=== PATIENT | female | born 1955 | race Caucasian/White ===

== ENCOUNTER 2017-07-09 08:29 | Inpatient (IN) ==
[2017-07-09] MEDS ORDERED: METOPROLOL TARTRATE 5 MG/5 ML VIAL IV STA (09:02)
[2017-07-09] MEDS ORDERED: METOCLOPRAMIDE 10 MG/2 ML VIAL IV STA (09:02)
[2017-07-09] MEDS ORDERED: ONDANSETRON 4 MG/2 ML VIAL IV STA (09:02)
[2017-07-09] MEDS ORDERED: ASPIRIN 325 MG TABLET PO STA (09:02)
[2017-07-09] MEDS ORDERED: NITROGLYCERIN 2% OINT 1 INCH/GM PACK TOP STA (09:02)
[2017-07-09] MEDS ORDERED: METOCLOPRAMIDE 10 MG/2 ML VIAL ONE (09:20)
[2017-07-09] MEDS ORDERED: METOPROLOL TARTRATE 5 MG/5 ML VIAL IV ONE (09:20)
[2017-07-09] MEDS ORDERED: ONDANSETRON 4 MG/2 ML VIAL ONE (09:20)
[2017-07-09] MEDS ORDERED: NITROGLYCERIN 2% OINT 1 INCH/GM PACK TOP ONE (09:20)
[2017-07-09 09:34] LABS: Basophils % 0.4 % (0.0-0.8); Eosinophils # 0.1 10*3/uL (0.0-0.87); Eosinophils % 1.7 % (0.00-10.9); Hematocrit 35.9 VOL% (35.7-47.0); Hemoglobin 11.3 GM/DL (12.0-16.0); Immature Granulocytes % 0.5 %; Immature Granulocytes Absolute 0.04 #; Lymphocytes # 1.3 10*3/uL (1.4-4.0); Mean Corpuscular HGB Conc 31.5 GM/DL (32-36); Mean Corpuscular Hemoglobin 29 PG (27-34); Mean Corpuscular Volume 91.6 FL (87-102); Mean Platelet Volume 11.6 FL (9.6-12.0); Monocytes # 0.8 10*3/uL (0.11-0.8); Monocytes % 8.9 % (1.7-12.7); Neutrophils # 6.2 10*3/uL (1.4-7.4); Neutrophils % 73.5 % (38.7-73.9); Platelet Count 128 T/CUMM (130-400); Red Blood Count 3.92 MC/CUMM (3.8-5.5); Red Cell Distribution Width 13.4 % (9.3-17.3); White Blood Count 8.4 T/CUMM (4-12)
[2017-07-09] MEDS ORDERED: FUROSEMIDE 40 MG/4 ML VIAL IV STA (09:37)
[2017-07-09] MEDS ORDERED: FUROSEMIDE 40 MG/4 ML VIAL ONE (09:41)
[2017-07-09 09:46] LABS: INR 0.9; Partial Thromboplastin Time 25.6 SECS (0-40)
[2017-07-09] MEDS ORDERED: MORPHINE 10 MG/1 ML VIAL ONE (09:47)
[2017-07-09] MEDS ORDERED: MORPHINE 2 MG/1 ML SYRINGE IV STA (09:50)
[2017-07-09] MEDS ORDERED: ENOXAPARIN 100 MG/ML SYRINGE SUBCUT STA (10:12)
[2017-07-09 10:14] LABS: Apearance,Urine CLEAR (Clear); Bacteria,Urine Occasional /HPF (Few); Bilirubin,Urine Negative (Negative); Blood, Urine Negative (Negative); Glucose,Urine (UA) Negative (Negative); Ketones,Urine Negative (Negative); Mucus,Urine Occasional /LPF (Occasional); Nitrite,Urine Negative (Negative); Protein,Urine 100 MG/DL; RBC,Urine <1 /HPF (0-4); Squamous Epithelial Cell,Urine Occasional /HPF (0-10); Urine Color Straw (Yellow); Urine Specific Gravity 1.008 (1.001-1.035); Urine Urobilinogen < 2.0 EU/DL (0.2-1.0); WBC,Urine <1 /HPF (0-6)
[2017-07-09 10:15] LABS: Alanine Aminotransferase 53 U/L (13-56); Albumin 3.2 G/DL (3.4-5.0); Alkaline Phosphatase 173 U/L (45-117); Aspartate Amino Transferase 31 U/L (0-37); Bilirubin,Total < 0.39 MG/DL (0.2-1.0); Blood Urea Nitrogen 60 MG/DL (7-18); Calcium 8.6 MG/DL (8.5-10.1); Glucose 229 MG/DL (74-106); Osmolality,Calculated 296.8 MOS/KG (273-304); Potassium 5.1 MMOL/L (3.5-5.1); Sodium 137 MMOL/L (136-145); Total Protein 6.4 G/DL (6.4-8.3)
[2017-07-09 10:30] LABS: Barbiturates Screen,Urine Negative (Negative); Benzodiazepines Screen,Urine Negative (Negative); Cannabinoid Screen,Urine Negative (Negative); Opiate Screen,Urine Negative (Negative); Phencyclidine Screen,Urine Negative (Negative)
[2017-07-09] MEDS ORDERED: ENOXAPARIN 120 MG/0.8 ML SYRINGE SUBCUT ONE (10:42)
[2017-07-09] MEDS ORDERED: DEXTROSE 50% 25 GM/50 ML VIAL IV PRN (11:39)
[2017-07-09] MEDS ORDERED: GLUCAGON 1 MG VIAL IM PRN (11:39)
[2017-07-09] MEDS: NITROGLYCERIN 2% OINT 1 INCH/GM PACK TOP SCH ×2 (12:10→17:38)
[2017-07-09] MEDS: INSULIN REGULAR 100 UNIT/ML SUBCUT SCH ×3 (12:24→21:35)
[2017-07-09] MEDS ORDERED: POTASSIUM CHLORIDE RIDER 10 MEQ in PREMIX 1 EACH IV PRN (12:56)
[2017-07-09] MEDS ORDERED: MAGNESIUM SULF RIDER 2 GM in PREMIX 1 EACH IV PRN (12:56)
[2017-07-09] MEDS: HYDROmorphone 2 MG/1 ML VIAL IV PRN ×2 (15:01→21:27)
[2017-07-09] MEDS: SODIUM CHLORIDE 0.9% 1,000 ML IV SCH (15:02)
[2017-07-09] MEDS: FUROSEMIDE 40 MG/4 ML VIAL IV SCH (15:05)
[2017-07-09] MEDS: ONDANSETRON 4 MG/2 ML VIAL IV PRN ×2 (15:42→21:32)
[2017-07-09 16:23] LABS: CKMB % 3.2 %
[2017-07-09 16:25] LABS: Troponin I Only 1.33 NG/ML (0.00-0.045)
[2017-07-09] MEDS: INSULIN GLARGINE 100 UNIT/ML SUBCUT SCH (21:35)
[2017-07-09] MEDS ORDERED: NITROGLYCERIN SL 0.4 MG TABLET SL ONE (21:41)
[2017-07-09] MEDS: NITROGLYCERIN SL 0.4 MG TABLET SL PRN ×3 (21:43→21:53)
[2017-07-09] MEDS ORDERED: ENOXAPARIN 150 MG/ML SYRINGE SUBCUT SCH (22:00)
[2017-07-09] MEDS ORDERED: NITROGLYCERIN DRIP 50 MG/250 ML BOTTLE IV ONE (22:05)
[2017-07-09] MEDS: NITROGLYCERIN DRIP 50 MG/250 ML BOTTLE IV SCH (22:34)
[2017-07-10] MEDS: NITROGLYCERIN 2% OINT 1 INCH/GM PACK TOP SCH ×4 (00:34→18:10)
[2017-07-10] MEDS: SODIUM CHLORIDE 0.9% 1,000 ML IV SCH ×3 (01:42→21:13)
[2017-07-10] MEDS: ONDANSETRON 4 MG/2 ML VIAL IV PRN (06:03)
[2017-07-10 06:06] LABS: Basophils % 0.3 % (0.0-0.8); Eosinophils # 0.2 10*3/uL (0.0-0.87); Eosinophils % 2.3 % (0.00-10.9); Hemoglobin 10.6 GM/DL (12.0-16.0); Immature Granulocytes % 0.5 %; Immature Granulocytes Absolute 0.05 #; Lymphocytes # 1.5 10*3/uL (1.4-4.0); Lymphocytes % 16.3 % (21.3-54.2); Mean Corpuscular HGB Conc 31.2 GM/DL (32-36); Mean Corpuscular Hemoglobin 29 PG (27-34); Mean Corpuscular Volume 93.7 FL (87-102); Mean Platelet Volume 11.9 FL (9.6-12.0); Monocytes # 0.7 10*3/uL (0.11-0.8); Monocytes % 7.9 % (1.7-12.7); Neutrophils # 6.8 10*3/uL (1.4-7.4); Neutrophils % 72.7 % (38.7-73.9); Platelet Count 126 T/CUMM (130-400); Red Blood Count 3.63 MC/CUMM (3.8-5.5); Red Cell Distribution Width 13.4 % (9.3-17.3); White Blood Count 9.3 T/CUMM (4-12)
[2017-07-10 06:24] LABS: Osmolality,Calculated 308.5 MOS/KG (273-304)
[2017-07-10 06:29] LABS: CKMB % 3.7 %
[2017-07-10 06:30] LABS: Troponin I Only 1.17 NG/ML (0.00-0.045)
[2017-07-10] MEDS ORDERED: diphenhydrAMINE CAP 25 MG CAPSULE PO ONE (06:30)
[2017-07-10] MEDS ORDERED: DIAZEPAM 5 MG TABLET PO ONE (06:30)
[2017-07-10] MEDS: NITROGLYCERIN DRIP 50 MG/250 ML BOTTLE IV SCH ×3 (06:39→22:20)
[2017-07-10] MEDS: FUROSEMIDE 40 MG/4 ML VIAL IV SCH ×3 (07:30→21:15)
[2017-07-10] MEDS: INSULIN REGULAR 100 UNIT/ML SUBCUT SCH ×4 (07:57→21:14)
[2017-07-10] MEDS ORDERED: LIDOCAINE 2%/EPI 20 ML VIAL ONE (08:10)
[2017-07-10] MEDS ORDERED: HEPARIN/NACL 0.9% 2 UNITS/ML 2,000 ML IV ONE (08:10)
[2017-07-10] MEDS ORDERED: MIDAZOLAM 2 MG/2 ML VIAL ONE (08:39)
[2017-07-10] MEDS ORDERED: fentaNYL 100 MCG/2 ML VIAL ONE (08:39)
[2017-07-10] MEDS ORDERED: MORPHINE 10 MG/1 ML VIAL ONE (08:43)
[2017-07-10] MEDS ORDERED: ENOXAPARIN 60 MG/0.6 ML SYRINGE ONE (08:56)
[2017-07-10] MEDS ORDERED: ASPIRIN 325 MG TABLET PO SCH (09:00)
[2017-07-10] MEDS ORDERED: SIMVASTATIN 40 MG TABLET PO SCH (09:00)
[2017-07-10] MEDS ORDERED: TIROFIBAN 5,000 MCG/100 ML PREMIX IV ONE (09:04)
[2017-07-10] MEDS ORDERED: TIROFIBAN 5,000 MCG/100 ML PREMIX IV SCH (09:13)
[2017-07-10] MEDS ORDERED: METOPROLOL TARTRATE 5 MG/5 ML VIAL IV ONE (09:24)
[2017-07-10] MEDS ORDERED: CLOPIDOGREL 300 MG TABLET ONE (09:42)
[2017-07-10] MEDS ORDERED: ENOXAPARIN 150 MG/ML SYRINGE SUBCUT SCH (10:00)
[2017-07-10 10:14] LABS: Apearance,Urine Slightly Hazy (Clear); Bacteria,Urine Occasional /HPF (Few); Bilirubin,Urine Negative (Negative); Blood, Urine Small mg/dL (Negative); Glucose,Urine (UA) Negative (Negative); Ketones,Urine Negative (Negative); Mucus,Urine Occasional /LPF (Occasional); Nitrite,Urine Negative (Negative); Protein,Urine Negative; RBC,Urine 3 /HPF (0-4); Urine Color Yellow (Yellow); Urine Specific Gravity 1.018 (1.001-1.035); Urine Urobilinogen < 2.0 EU/DL (0.2-1.0); WBC,Urine <1 /HPF (0-6)
[2017-07-10] MEDS ORDERED: cloNIDine 0.1 MG TABLET PO PRN (10:29)
[2017-07-10] MEDS: HYDROmorphone 2 MG/1 ML VIAL IV PRN (10:40)
[2017-07-10] MEDS ORDERED: INSULIN LISPRO 100 UNIT/ML SUBCUT PRN (11:17)
[2017-07-10] MEDS ORDERED: FLUTICASONE 50 MCG NASAL SPRAY 16 GM BOTTLE BOTH NARES PRN (11:17)
[2017-07-10] MEDS ORDERED: FUROSEMIDE 40 MG TABLET PO SCH (11:30)
[2017-07-10] MEDS ORDERED: ALUM/MAG/SIMETH/LIDO VISC 1:1 30 ML BOTTLE PO ONE (11:37)
[2017-07-10] MEDS ORDERED: MORPHINE 10 MG/1 ML VIAL IV ONE (11:37)
[2017-07-10 11:57] LABS: Troponin I Only 0.717 NG/ML (0.00-0.045)
[2017-07-10] MEDS: PANTOPRAZOLE 40 MG TABLET PO SCH (12:10)
[2017-07-10] MEDS: ESCITALOPRAM 10 MG TABLET PO SCH ×2 (12:11→12:12)
[2017-07-10] MEDS: FERROUS SULFATE 325 MG TABLET PO SCH ×2 (12:11→21:13)
[2017-07-10] MEDS: CARVEDILOL 6.25 MG TABLET PO SCH ×2 (12:11→21:14)
[2017-07-10] MEDS: ISOSORBIDE MONONITRATE 60 MG TABLET PO SCH (12:11)
[2017-07-10] MEDS: CLOPIDOGREL 75 MG TABLET PO SCH (12:23)
[2017-07-10] MEDS ORDERED: ALUM/MAG/SIMETH/LIDO VISC 1:1 30 ML BOTTLE PO PRN (15:00)
[2017-07-10] MEDS: MAGNESIUM CHLORIDE 64 MG TABLET PO SCH ×2 (15:35→21:13)
[2017-07-10] MEDS: amLODIPine 5 MG TABLET PO SCH (15:35)
[2017-07-10 19:57] LABS: CKMB % 6.2 %
[2017-07-10 20:03] LABS: Troponin I Only 3.93 NG/ML (0.00-0.045)
[2017-07-10] MEDS: ATORVASTATIN 40 MG TABLET PO SCH (21:14)
[2017-07-10] MEDS: INSULIN GLARGINE 100 UNIT/ML SUBCUT SCH (21:14)
[2017-07-11] MEDS: NITROGLYCERIN 2% OINT 1 INCH/GM PACK TOP SCH ×3 (00:50→15:13)
[2017-07-11 02:58] LABS: Basophils % 0.1 % (0.0-0.8); Eosinophils # 0.1 10*3/uL (0.0-0.87); Eosinophils % 1.7 % (0.00-10.9); Hemoglobin 9.7 GM/DL (12.0-16.0); Immature Granulocytes % 0.7 %; Immature Granulocytes Absolute 0.05 #; Lymphocytes % 13.4 % (21.3-54.2); Mean Corpuscular HGB Conc 32.3 GM/DL (32-36); Mean Corpuscular Hemoglobin 30 PG (27-34); Mean Corpuscular Volume 91.2 FL (87-102); Mean Platelet Volume 11.2 FL (9.6-12.0); Monocytes # 0.7 10*3/uL (0.11-0.8); Monocytes % 9.2 % (1.7-12.7); Neutrophils # 5.7 10*3/uL (1.4-7.4); Neutrophils % 74.9 % (38.7-73.9); Platelet Count 100 T/CUMM (130-400); Red Blood Count 3.29 MC/CUMM (3.8-5.5); Red Cell Distribution Width 13.6 % (9.3-17.3); White Blood Count 7.6 T/CUMM (4-12)
[2017-07-11 03:45] LABS: Calcium 8.1 MG/DL (8.5-10.1); Osmolality,Calculated 302.4 MOS/KG (273-304); Potassium 4.5 MMOL/L (3.5-5.1)
[2017-07-11 03:47] LABS: Calcium 7.9 MG/DL (8.5-10.1); Potassium 4.5 MMOL/L (3.5-5.1)
[2017-07-11 03:52] LABS: CKMB % 8.6 %
[2017-07-11 04:01] LABS: Troponin I Only 9.79 NG/ML (0.00-0.045)
[2017-07-11] MEDS: ONDANSETRON 4 MG/2 ML VIAL IV PRN ×2 (06:07→13:07)
[2017-07-11] MEDS ORDERED: CARVEDILOL 12.5 MG TABLET PO SCH (08:09)
[2017-07-11] MEDS: FUROSEMIDE 40 MG/4 ML VIAL IV SCH ×3 (09:09→20:21)
[2017-07-11] MEDS: INSULIN REGULAR 100 UNIT/ML SUBCUT SCH ×4 (09:09→20:21)
[2017-07-11] MEDS: ISOSORBIDE MONONITRATE 60 MG TABLET PO SCH (09:10)
[2017-07-11] MEDS: amLODIPine 5 MG TABLET PO SCH (09:10)
[2017-07-11] MEDS: ASPIRIN EC 81 MG TABLET PO SCH (09:10)
[2017-07-11] MEDS: MAGNESIUM CHLORIDE 64 MG TABLET PO SCH ×3 (09:10→20:16)
[2017-07-11] MEDS: CLOPIDOGREL 75 MG TABLET PO SCH (09:10)
[2017-07-11] MEDS: FERROUS SULFATE 325 MG TABLET PO SCH ×2 (09:10→20:16)
[2017-07-11] MEDS: PANTOPRAZOLE 40 MG TABLET PO SCH (09:11)
[2017-07-11] MEDS: ESCITALOPRAM 10 MG TABLET PO SCH ×2 (09:11)
[2017-07-11] MEDS: CHOLECALCIFEROL 5,000 UNIT TABLET PO SCH (09:18)
[2017-07-11] MEDS: ENOXAPARIN 30 MG/0.3 ML SYRINGE SUBCUT SCH (09:18)
[2017-07-11] MEDS ORDERED: HYDROmorphone 2 MG/1 ML VIAL IV ONE (15:15)
[2017-07-11] MEDS: RANOLAZINE 500 MG TABLET PO SCH (20:16)
[2017-07-11] MEDS: DILTIAZEM CD 120 MG CAPSULE PO SCH (20:16)
[2017-07-11] MEDS: ATORVASTATIN 40 MG TABLET PO SCH (20:16)
[2017-07-11] MEDS: CARVEDILOL 25 MG TABLET PO SCH (20:17)
[2017-07-11] MEDS: INSULIN GLARGINE 100 UNIT/ML SUBCUT SCH (20:21)
[2017-07-12] MEDS: ONDANSETRON 4 MG/2 ML VIAL IV PRN ×3 (00:22→13:05)
[2017-07-12 07:08] LABS: Calcium 8.3 MG/DL (8.5-10.1); Osmolality,Calculated 306.7 MOS/KG (273-304); Potassium 5.7 MMOL/L (3.5-5.1)
[2017-07-12] MEDS: INSULIN REGULAR 100 UNIT/ML SUBCUT SCH ×4 (08:46→22:40)
[2017-07-12] MEDS: MAGNESIUM CHLORIDE 64 MG TABLET PO SCH ×3 (09:48→22:40)
[2017-07-12] MEDS: PANTOPRAZOLE 40 MG TABLET PO SCH (09:48)
[2017-07-12] MEDS: RANOLAZINE 500 MG TABLET PO SCH ×2 (09:49→22:40)
[2017-07-12] MEDS: ASPIRIN EC 81 MG TABLET PO SCH (09:49)
[2017-07-12] MEDS: FERROUS SULFATE 325 MG TABLET PO SCH ×2 (09:49→22:40)
[2017-07-12] MEDS: CARVEDILOL 25 MG TABLET PO SCH (09:49)
[2017-07-12] MEDS: ESCITALOPRAM 10 MG TABLET PO SCH (09:49)
[2017-07-12] MEDS: CLOPIDOGREL 75 MG TABLET PO SCH (09:49)
[2017-07-12] MEDS: CHOLECALCIFEROL 5,000 UNIT TABLET PO SCH (09:49)
[2017-07-12] MEDS: ISOSORBIDE MONONITRATE 60 MG TABLET PO SCH (09:49)
[2017-07-12] MEDS: ENOXAPARIN 30 MG/0.3 ML SYRINGE SUBCUT SCH (09:50)
[2017-07-12] MEDS: FUROSEMIDE 40 MG/4 ML VIAL IV SCH (09:50)
[2017-07-12] MEDS ORDERED: SODIUM POLYSTYRENE SULFATE 15 GM/60 ML BOTTLE PO ONE (13:40)
[2017-07-12 14:10] LABS: Basophils % 0.1 % (0.0-0.8); Eosinophils % 0.3 % (0.00-10.9); Hematocrit 28.1 VOL% (35.7-47.0); Hemoglobin 8.8 GM/DL (12.0-16.0); Immature Granulocytes % 0.4 %; Immature Granulocytes Absolute 0.03 #; Lymphocytes # 1.3 10*3/uL (1.4-4.0); Lymphocytes % 17.6 % (21.3-54.2); Mean Corpuscular HGB Conc 31.3 GM/DL (32-36); Mean Corpuscular Hemoglobin 29 PG (27-34); Mean Corpuscular Volume 93.4 FL (87-102); Mean Platelet Volume 11.1 FL (9.6-12.0); Monocytes # 0.7 10*3/uL (0.11-0.8); Monocytes % 9.4 % (1.7-12.7); NRBC # 0.02 10*3/uL; Neutrophils # 5.2 10*3/uL (1.4-7.4); Neutrophils % 72.2 % (38.7-73.9); Red Blood Count 3.01 MC/CUMM (3.8-5.5); Red Cell Distribution Width 13.6 % (9.3-17.3); White Blood Count 7.2 T/CUMM (4-12)
[2017-07-12 14:13] LABS: Platelet Count 84 T/CUMM (130-400)
[2017-07-12] MEDS: SODIUM CHLORIDE 0.45% 1,000 ML IV SCH (14:20)
[2017-07-12 20:46] LABS: Platelet Estimate Decreased
[2017-07-12] MEDS: INSULIN GLARGINE 100 UNIT/ML SUBCUT SCH (22:40)
[2017-07-12] MEDS: ATORVASTATIN 40 MG TABLET PO SCH (22:40)
[2017-07-12] MEDS: DILTIAZEM CD 120 MG CAPSULE PO SCH (22:41)
[2017-07-13] MEDS: SODIUM CHLORIDE 0.45% 1,000 ML IV SCH (03:17)
[2017-07-13 06:20] LABS: Basophils % 0.3 % (0.0-0.8); Eosinophils # 0.1 10*3/uL (0.0-0.87); Eosinophils % 0.8 % (0.00-10.9); Hematocrit 29.2 VOL% (35.7-47.0); Immature Granulocytes % 0.8 %; Immature Granulocytes Absolute 0.06 #; Lymphocytes # 1.2 10*3/uL (1.4-4.0); Lymphocytes % 15.7 % (21.3-54.2); Mean Corpuscular HGB Conc 30.8 GM/DL (32-36); Mean Corpuscular Hemoglobin 29 PG (27-34); Mean Corpuscular Volume 93.9 FL (87-102); Mean Platelet Volume 12.6 FL (9.6-12.0); Monocytes # 0.8 10*3/uL (0.11-0.8); NRBC # 0.03 10*3/uL; Neutrophils # 5.4 10*3/uL (1.4-7.4); Neutrophils % 71.4 % (38.7-73.9); Platelet Count 101 T/CUMM (130-400); Red Blood Count 3.11 MC/CUMM (3.8-5.5); Red Cell Distribution Width 13.9 % (9.3-17.3); White Blood Count 7.5 T/CUMM (4-12)
[2017-07-13 06:48] LABS: Calcium 8.2 MG/DL (8.5-10.1); Osmolality,Calculated 307.5 MOS/KG (273-304); Potassium 4.5 MMOL/L (3.5-5.1)
[2017-07-13] MEDS: FERROUS SULFATE 325 MG TABLET PO SCH ×2 (08:43→20:59)
[2017-07-13] MEDS: MAGNESIUM CHLORIDE 64 MG TABLET PO SCH ×3 (08:43→20:59)
[2017-07-13] MEDS: ASPIRIN EC 81 MG TABLET PO SCH (08:43)
[2017-07-13] MEDS: CLOPIDOGREL 75 MG TABLET PO SCH (08:43)
[2017-07-13] MEDS: ENOXAPARIN 30 MG/0.3 ML SYRINGE SUBCUT SCH (08:43)
[2017-07-13] MEDS: ISOSORBIDE MONONITRATE 60 MG TABLET PO SCH (08:43)
[2017-07-13] MEDS: CHOLECALCIFEROL 5,000 UNIT TABLET PO SCH (08:43)
[2017-07-13] MEDS: ESCITALOPRAM 10 MG TABLET PO SCH (08:43)
[2017-07-13] MEDS: PANTOPRAZOLE 40 MG TABLET PO SCH (08:43)
[2017-07-13] MEDS: RANOLAZINE 500 MG TABLET PO SCH ×2 (08:43→21:00)
[2017-07-13] MEDS: INSULIN REGULAR 100 UNIT/ML SUBCUT SCH ×4 (08:54→21:00)
[2017-07-13] MEDS: SODIUM BICARB INJ 100 MEQ in DEXTROSE 5% 1,000 ML IV SCH (17:14)
[2017-07-13] MEDS: ATORVASTATIN 40 MG TABLET PO SCH (20:59)
[2017-07-13] MEDS: INSULIN GLARGINE 100 UNIT/ML SUBCUT SCH (21:00)
[2017-07-13] MEDS: DILTIAZEM CD 120 MG CAPSULE PO SCH (21:56)
[2017-07-14] MEDS: ONDANSETRON 4 MG/2 ML VIAL IV PRN (00:31)
[2017-07-14] MEDS: SODIUM BICARB INJ 100 MEQ in DEXTROSE 5% 1,000 ML IV SCH ×2 (06:01→10:05)
[2017-07-14 06:18] LABS: Calcium 8.1 MG/DL (8.5-10.1); Osmolality,Calculated 317.7 MOS/KG (273-304); Potassium 4.6 MMOL/L (3.5-5.1)
[2017-07-14] MEDS: INSULIN REGULAR 100 UNIT/ML SUBCUT SCH ×4 (10:02→21:51)
[2017-07-14] MEDS: ENOXAPARIN 30 MG/0.3 ML SYRINGE SUBCUT SCH (10:03)
[2017-07-14] MEDS: FERROUS SULFATE 325 MG TABLET PO SCH ×2 (10:03→21:51)
[2017-07-14] MEDS: CLOPIDOGREL 75 MG TABLET PO SCH (10:04)
[2017-07-14] MEDS: RANOLAZINE 500 MG TABLET PO SCH ×2 (10:04→21:52)
[2017-07-14] MEDS: ESCITALOPRAM 10 MG TABLET PO SCH (10:04)
[2017-07-14] MEDS: CHOLECALCIFEROL 5,000 UNIT TABLET PO SCH (10:04)
[2017-07-14] MEDS: ISOSORBIDE MONONITRATE 60 MG TABLET PO SCH (10:04)
[2017-07-14] MEDS: PANTOPRAZOLE 40 MG TABLET PO SCH (10:04)
[2017-07-14] MEDS: ASPIRIN EC 81 MG TABLET PO SCH (10:04)
[2017-07-14] MEDS: MAGNESIUM CHLORIDE 64 MG TABLET PO SCH ×3 (10:05→23:02)
[2017-07-14] MEDS: PREGABALIN 25 MG CAPSULE PO SCH ×2 (11:32→21:51)
[2017-07-14] MEDS: INSULIN GLARGINE 100 UNIT/ML SUBCUT SCH (21:51)
[2017-07-14] MEDS: ATORVASTATIN 40 MG TABLET PO SCH (21:52)
[2017-07-14] MEDS: DILTIAZEM CD 120 MG CAPSULE PO SCH (21:52)
[2017-07-15] MEDS: SODIUM BICARB INJ 100 MEQ in DEXTROSE 5% 1,000 ML IV SCH (04:20)
[2017-07-15 04:43] LABS: Basophils % 0.3 % (0.0-0.8); Eosinophils # 0.2 10*3/uL (0.0-0.87); Eosinophils % 2.8 % (0.00-10.9); Hematocrit 27.6 VOL% (35.7-47.0); Hemoglobin 8.6 GM/DL (12.0-16.0); Immature Granulocytes % 0.6 %; Immature Granulocytes Absolute 0.04 #; Lymphocytes % 13.9 % (21.3-54.2); Mean Corpuscular HGB Conc 31.2 GM/DL (32-36); Mean Corpuscular Hemoglobin 29 PG (27-34); Mean Corpuscular Volume 93.9 FL (87-102); Mean Platelet Volume 11.8 FL (9.6-12.0); Monocytes # 0.8 10*3/uL (0.11-0.8); Monocytes % 11.1 % (1.7-12.7); NRBC # 0.02 10*3/uL; Neutrophils # 5.1 10*3/uL (1.4-7.4); Neutrophils % 71.3 % (38.7-73.9); Platelet Count 111 T/CUMM (130-400); Red Blood Count 2.94 MC/CUMM (3.8-5.5); White Blood Count 7.2 T/CUMM (4-12)
[2017-07-15 05:14] LABS: Calcium 8.4 MG/DL (8.5-10.1); Osmolality,Calculated 311.5 MOS/KG (273-304); Potassium 4.4 MMOL/L (3.5-5.1)
[2017-07-15] MEDS: INSULIN REGULAR 100 UNIT/ML SUBCUT SCH ×4 (08:42→21:19)
[2017-07-15] MEDS: MAGNESIUM CHLORIDE 64 MG TABLET PO SCH ×3 (09:39→22:52)
[2017-07-15] MEDS: PREGABALIN 25 MG CAPSULE PO SCH ×2 (09:39→21:19)
[2017-07-15] MEDS: FERROUS SULFATE 325 MG TABLET PO SCH ×2 (09:39→21:20)
[2017-07-15] MEDS: CHOLECALCIFEROL 5,000 UNIT TABLET PO SCH (09:39)
[2017-07-15] MEDS: ESCITALOPRAM 10 MG TABLET PO SCH (09:39)
[2017-07-15] MEDS: ISOSORBIDE MONONITRATE 60 MG TABLET PO SCH (09:39)
[2017-07-15] MEDS: ASPIRIN EC 81 MG TABLET PO SCH (09:39)
[2017-07-15] MEDS: RANOLAZINE 500 MG TABLET PO SCH ×2 (09:39→21:20)
[2017-07-15] MEDS: PANTOPRAZOLE 40 MG TABLET PO SCH (09:40)
[2017-07-15] MEDS: CLOPIDOGREL 75 MG TABLET PO SCH (09:40)
[2017-07-15] MEDS: ENOXAPARIN 30 MG/0.3 ML SYRINGE SUBCUT SCH (09:41)
[2017-07-15] MEDS: INSULIN GLARGINE 100 UNIT/ML SUBCUT SCH (21:19)
[2017-07-15] MEDS: DILTIAZEM CD 120 MG CAPSULE PO SCH (21:20)
[2017-07-15] MEDS: ATORVASTATIN 40 MG TABLET PO SCH (21:20)
[2017-07-16] MEDS: SODIUM BICARB INJ 100 MEQ in DEXTROSE 5% 1,000 ML IV SCH ×3 (00:38→21:24)
[2017-07-16 03:20] LABS: Basophils % 0.3 % (0.0-0.8); Eosinophils # 0.2 10*3/uL (0.0-0.87); Eosinophils % 2.5 % (0.00-10.9); Hematocrit 27.2 VOL% (35.7-47.0); Immature Granulocytes % 0.9 %; Immature Granulocytes Absolute 0.07 #; Lymphocytes % 12.6 % (21.3-54.2); Mean Corpuscular HGB Conc 33.1 GM/DL (32-36); Mean Corpuscular Hemoglobin 30 PG (27-34); Mean Corpuscular Volume 89.8 FL (87-102); Mean Platelet Volume 11.8 FL (9.6-12.0); Monocytes # 0.8 10*3/uL (0.11-0.8); Monocytes % 9.6 % (1.7-12.7); Neutrophils # 5.9 10*3/uL (1.4-7.4); Neutrophils % 74.1 % (38.7-73.9); Platelet Count 128 T/CUMM (130-400); Red Blood Count 3.03 MC/CUMM (3.8-5.5); Red Cell Distribution Width 14.1 % (9.3-17.3)
[2017-07-16 03:31] LABS: Calcium 8.2 MG/DL (8.5-10.1); Osmolality,Calculated 313.7 MOS/KG (273-304); Potassium 4.3 MMOL/L (3.5-5.1)
[2017-07-16] MEDS: INSULIN REGULAR 100 UNIT/ML SUBCUT SCH ×4 (09:30→20:38)
[2017-07-16] MEDS: RANOLAZINE 500 MG TABLET PO SCH ×2 (09:31→20:38)
[2017-07-16] MEDS: ISOSORBIDE MONONITRATE 60 MG TABLET PO SCH (09:31)
[2017-07-16] MEDS: CHOLECALCIFEROL 5,000 UNIT TABLET PO SCH (09:31)
[2017-07-16] MEDS: PANTOPRAZOLE 40 MG TABLET PO SCH (09:31)
[2017-07-16] MEDS: FERROUS SULFATE 325 MG TABLET PO SCH ×2 (09:31→20:38)
[2017-07-16] MEDS: PREGABALIN 25 MG CAPSULE PO SCH ×2 (09:31→20:38)
[2017-07-16] MEDS: ESCITALOPRAM 10 MG TABLET PO SCH (09:31)
[2017-07-16] MEDS: CLOPIDOGREL 75 MG TABLET PO SCH (09:32)
[2017-07-16] MEDS: ASPIRIN EC 81 MG TABLET PO SCH (09:32)
[2017-07-16] MEDS: MAGNESIUM CHLORIDE 64 MG TABLET PO SCH ×3 (09:32→21:43)
[2017-07-16] MEDS: ENOXAPARIN 30 MG/0.3 ML SYRINGE SUBCUT SCH (09:32)
[2017-07-16] MEDS ORDERED: CARVEDILOL 3.125 MG TABLET PO SCH (12:00)
[2017-07-16] MEDS: CARVEDILOL 6.25 MG TABLET PO SCH ×2 (13:02→20:38)
[2017-07-16] MEDS: INSULIN GLARGINE 100 UNIT/ML SUBCUT SCH (20:38)
[2017-07-16] MEDS: ATORVASTATIN 40 MG TABLET PO SCH (20:38)
[2017-07-16] MEDS: DILTIAZEM CD 120 MG CAPSULE PO SCH (21:43)
[2017-07-17 04:48] LABS: Basophils % 0.2 % (0.0-0.8); Eosinophils # 0.2 10*3/uL (0.0-0.87); Eosinophils % 2.3 % (0.00-10.9); Hematocrit 28.8 VOL% (35.7-47.0); Hemoglobin 9.1 GM/DL (12.0-16.0); Immature Granulocytes % 0.7 %; Immature Granulocytes Absolute 0.06 #; Lymphocytes % 11.5 % (21.3-54.2); Mean Corpuscular HGB Conc 31.6 GM/DL (32-36); Mean Corpuscular Hemoglobin 29 PG (27-34); Mean Corpuscular Volume 90.6 FL (87-102); Mean Platelet Volume 11.1 FL (9.6-12.0); Monocytes # 0.8 10*3/uL (0.11-0.8); Monocytes % 9.8 % (1.7-12.7); Neutrophils # 6.2 10*3/uL (1.4-7.4); Neutrophils % 75.5 % (38.7-73.9); Platelet Count 145 T/CUMM (130-400); Red Blood Count 3.18 MC/CUMM (3.8-5.5); Red Cell Distribution Width 13.9 % (9.3-17.3); White Blood Count 8.2 T/CUMM (4-12)
[2017-07-17 05:27] LABS: Calcium 8.4 MG/DL (8.5-10.1); Osmolality,Calculated 313.4 MOS/KG (273-304); Potassium 4.3 MMOL/L (3.5-5.1)
[2017-07-17] MEDS: INSULIN REGULAR 100 UNIT/ML SUBCUT SCH ×4 (09:07→20:50)
[2017-07-17] MEDS: ASPIRIN EC 81 MG TABLET PO SCH (10:39)
[2017-07-17] MEDS: DILTIAZEM CD 120 MG CAPSULE PO SCH (10:40)
[2017-07-17] MEDS: FERROUS SULFATE 325 MG TABLET PO SCH ×2 (10:41→20:50)
[2017-07-17] MEDS: CARVEDILOL 6.25 MG TABLET PO SCH (10:41)
[2017-07-17] MEDS: ISOSORBIDE MONONITRATE 60 MG TABLET PO SCH (10:42)
[2017-07-17] MEDS: ESCITALOPRAM 10 MG TABLET PO SCH (10:43)
[2017-07-17] MEDS: PREGABALIN 25 MG CAPSULE PO SCH ×2 (10:44→20:50)
[2017-07-17] MEDS: RANOLAZINE 500 MG TABLET PO SCH (10:45)
[2017-07-17] MEDS: CLOPIDOGREL 75 MG TABLET PO SCH (10:45)
[2017-07-17] MEDS: CHOLECALCIFEROL 5,000 UNIT TABLET PO SCH (10:46)
[2017-07-17] MEDS: ENOXAPARIN 30 MG/0.3 ML SYRINGE SUBCUT SCH (11:15)
[2017-07-17] MEDS: MAGNESIUM CHLORIDE 64 MG TABLET PO SCH ×3 (11:18→20:50)
[2017-07-17] MEDS: PANTOPRAZOLE 40 MG TABLET PO SCH (11:20)
[2017-07-17] MEDS: NEBIVOLOL 10 MG TABLET PO SCH (16:44)
[2017-07-17] MEDS: FUROSEMIDE 40 MG/4 ML VIAL IV SCH (16:47)
[2017-07-17] MEDS: ATORVASTATIN 40 MG TABLET PO SCH (20:50)
[2017-07-17] MEDS: INSULIN GLARGINE 100 UNIT/ML SUBCUT SCH (20:51)
[2017-07-17] MEDS ORDERED: CARVEDILOL 12.5 MG TABLET PO SCH (21:00)
[2017-07-18] MEDS: DILTIAZEM CD 120 MG CAPSULE PO SCH (09:02)
[2017-07-18] MEDS: MAGNESIUM CHLORIDE 64 MG TABLET PO SCH ×3 (09:02→21:16)
[2017-07-18] MEDS: FERROUS SULFATE 325 MG TABLET PO SCH ×2 (09:02→21:16)
[2017-07-18] MEDS: PANTOPRAZOLE 40 MG TABLET PO SCH (09:02)
[2017-07-18] MEDS: ISOSORBIDE MONONITRATE 60 MG TABLET PO SCH (09:02)
[2017-07-18] MEDS: CLOPIDOGREL 75 MG TABLET PO SCH (09:02)
[2017-07-18] MEDS: CHOLECALCIFEROL 5,000 UNIT TABLET PO SCH (09:02)
[2017-07-18] MEDS: ASPIRIN EC 81 MG TABLET PO SCH (09:02)
[2017-07-18] MEDS: ENOXAPARIN 30 MG/0.3 ML SYRINGE SUBCUT SCH (09:03)
[2017-07-18] MEDS: INSULIN REGULAR 100 UNIT/ML SUBCUT SCH ×4 (09:03→21:15)
[2017-07-18] MEDS: ESCITALOPRAM 10 MG TABLET PO SCH (09:03)
[2017-07-18] MEDS: FUROSEMIDE 40 MG/4 ML VIAL IV SCH ×2 (09:04→16:23)
[2017-07-18] MEDS: PREGABALIN 25 MG CAPSULE PO SCH ×2 (09:41→21:16)
[2017-07-18] MEDS: NEBIVOLOL 10 MG TABLET PO SCH (09:41)
[2017-07-18] MEDS: INSULIN GLARGINE 100 UNIT/ML SUBCUT SCH (21:15)
[2017-07-18] MEDS: ATORVASTATIN 40 MG TABLET PO SCH (21:16)
[2017-07-19 05:10] LABS: Basophils % 0.3 % (0.0-0.8); Eosinophils # 0.2 10*3/uL (0.0-0.87); Hematocrit 27.9 VOL% (35.7-47.0); Hemoglobin 8.8 GM/DL (12.0-16.0); Immature Granulocytes % 0.4 %; Immature Granulocytes Absolute 0.03 #; Lymphocytes # 1.1 10*3/uL (1.4-4.0); Lymphocytes % 14.6 % (21.3-54.2); Mean Corpuscular HGB Conc 31.5 GM/DL (32-36); Mean Corpuscular Hemoglobin 30 PG (27-34); Mean Corpuscular Volume 93.9 FL (87-102); Mean Platelet Volume 11.4 FL (9.6-12.0); Monocytes # 0.9 10*3/uL (0.11-0.8); Monocytes % 11.7 % (1.7-12.7); Neutrophils # 5.4 10*3/uL (1.4-7.4); Platelet Count 148 T/CUMM (130-400); Red Blood Count 2.97 MC/CUMM (3.8-5.5); Red Cell Distribution Width 14.6 % (9.3-17.3); White Blood Count 7.8 T/CUMM (4-12)
[2017-07-19 05:40] LABS: Osmolality,Calculated 314.3 MOS/KG (273-304); Potassium 4.6 MMOL/L (3.5-5.1)
[2017-07-19] MEDS ORDERED: ALBUTEROL/IPRATROPIUM 3 ML NEB RESP TX PRN (08:59)
[2017-07-19] MEDS: NITROGLYCERIN SL 0.4 MG TABLET SL PRN (09:22)
[2017-07-19] MEDS: CHOLECALCIFEROL 5,000 UNIT TABLET PO SCH (09:39)
[2017-07-19] MEDS: MAGNESIUM CHLORIDE 64 MG TABLET PO SCH ×3 (09:39→21:53)
[2017-07-19] MEDS: ESCITALOPRAM 10 MG TABLET PO SCH (09:39)
[2017-07-19] MEDS: ASPIRIN EC 81 MG TABLET PO SCH (09:40)
[2017-07-19] MEDS: ISOSORBIDE MONONITRATE 60 MG TABLET PO SCH (09:40)
[2017-07-19] MEDS: PANTOPRAZOLE 40 MG TABLET PO SCH (09:40)
[2017-07-19] MEDS: CLOPIDOGREL 75 MG TABLET PO SCH (09:40)
[2017-07-19] MEDS: DILTIAZEM CD 120 MG CAPSULE PO SCH (09:40)
[2017-07-19] MEDS: INSULIN REGULAR 100 UNIT/ML SUBCUT SCH ×4 (09:40→21:54)
[2017-07-19] MEDS: ENOXAPARIN 30 MG/0.3 ML SYRINGE SUBCUT SCH (09:40)
[2017-07-19] MEDS: FERROUS SULFATE 325 MG TABLET PO SCH ×2 (09:40→21:53)
[2017-07-19] MEDS: FUROSEMIDE 40 MG/4 ML VIAL IV SCH ×2 (09:41→16:04)
[2017-07-19] MEDS ORDERED: ALUM/MAG/SIMETH/LIDO VISC 1:1 30 ML BOTTLE PO ONE (09:42)
[2017-07-19] MEDS: CLORAZEPATE 3.75 MG TABLET PO PRN (09:53)
[2017-07-19 10:02] LABS: Troponin I Only 0.546 NG/ML (0.00-0.045)
[2017-07-19] MEDS: PREGABALIN 25 MG CAPSULE PO SCH ×2 (10:03→21:53)
[2017-07-19] MEDS ORDERED: guaiFENesin/DM ER 600-30 MG TABLET PO PRN (10:42)
[2017-07-19] MEDS ORDERED: ZALEPLON 5 MG CAPSULE PO PRN (10:42)
[2017-07-19] MEDS ORDERED: BISACODYL 5 MG TABLET PO PRN (10:42)
[2017-07-19] MEDS: ATORVASTATIN 40 MG TABLET PO SCH (21:54)
[2017-07-19] MEDS: INSULIN GLARGINE 100 UNIT/ML SUBCUT SCH (21:54)
[2017-07-20 05:50] LABS: Basophils % 0.3 % (0.0-0.8); Eosinophils # 0.2 10*3/uL (0.0-0.87); Eosinophils % 3.1 % (0.00-10.9); Hematocrit 28.3 VOL% (35.7-47.0); Hemoglobin 8.8 GM/DL (12.0-16.0); Immature Granulocytes % 0.5 %; Immature Granulocytes Absolute 0.04 #; Lymphocytes # 1.4 10*3/uL (1.4-4.0); Lymphocytes % 18.8 % (21.3-54.2); Mean Corpuscular HGB Conc 31.1 GM/DL (32-36); Mean Corpuscular Hemoglobin 29 PG (27-34); Mean Corpuscular Volume 92.2 FL (87-102); Mean Platelet Volume 11.1 FL (9.6-12.0); Monocytes # 0.9 10*3/uL (0.11-0.8); Monocytes % 11.3 % (1.7-12.7); Platelet Count 145 T/CUMM (130-400); Red Blood Count 3.07 MC/CUMM (3.8-5.5); Red Cell Distribution Width 14.8 % (9.3-17.3); White Blood Count 7.5 T/CUMM (4-12)
[2017-07-20 06:21] LABS: Calcium 8.4 MG/DL (8.5-10.1); Potassium 4.7 MMOL/L (3.5-5.1)
[2017-07-20] MEDS: PREGABALIN 25 MG CAPSULE PO SCH ×2 (09:23→21:34)
[2017-07-20] MEDS: CHOLECALCIFEROL 5,000 UNIT TABLET PO SCH (09:23)
[2017-07-20] MEDS: DILTIAZEM CD 120 MG CAPSULE PO SCH (09:23)
[2017-07-20] MEDS: ISOSORBIDE MONONITRATE 60 MG TABLET PO SCH (09:23)
[2017-07-20] MEDS: ASPIRIN EC 81 MG TABLET PO SCH (09:23)
[2017-07-20] MEDS: PANTOPRAZOLE 40 MG TABLET PO SCH (09:23)
[2017-07-20] MEDS: FERROUS SULFATE 325 MG TABLET PO SCH ×2 (09:23→21:34)
[2017-07-20] MEDS: MAGNESIUM CHLORIDE 64 MG TABLET PO SCH ×3 (09:23→21:34)
[2017-07-20] MEDS: CLOPIDOGREL 75 MG TABLET PO SCH (09:24)
[2017-07-20] MEDS: INSULIN REGULAR 100 UNIT/ML SUBCUT SCH ×4 (09:26→21:35)
[2017-07-20] MEDS: FUROSEMIDE 40 MG/4 ML VIAL IV SCH ×3 (09:26→21:34)
[2017-07-20] MEDS: ENOXAPARIN 30 MG/0.3 ML SYRINGE SUBCUT SCH (09:26)
[2017-07-20] MEDS: ESCITALOPRAM 10 MG TABLET PO SCH (09:27)
[2017-07-20] MEDS: CLORAZEPATE 3.75 MG TABLET PO PRN (13:47)
[2017-07-20] MEDS ORDERED: FUROSEMIDE 40 MG/4 ML VIAL ONE (13:50)
[2017-07-20] MEDS: ATORVASTATIN 40 MG TABLET PO SCH (21:34)
[2017-07-20] MEDS: INSULIN GLARGINE 100 UNIT/ML SUBCUT SCH (21:35)
[2017-07-21 05:14] LABS: Basophils % 0.3 % (0.0-0.8); Eosinophils # 0.3 10*3/uL (0.0-0.87); Eosinophils % 3.5 % (0.00-10.9); Hematocrit 27.7 VOL% (35.7-47.0); Hemoglobin 8.9 GM/DL (12.0-16.0); Immature Granulocytes % 0.5 %; Immature Granulocytes Absolute 0.04 #; Lymphocytes # 1.2 10*3/uL (1.4-4.0); Lymphocytes % 14.7 % (21.3-54.2); Mean Corpuscular HGB Conc 32.1 GM/DL (32-36); Mean Corpuscular Hemoglobin 29 PG (27-34); Mean Corpuscular Volume 91.1 FL (87-102); Mean Platelet Volume 11.5 FL (9.6-12.0); Monocytes # 0.8 10*3/uL (0.11-0.8); Monocytes % 10.7 % (1.7-12.7); Neutrophils # 5.5 10*3/uL (1.4-7.4); Neutrophils % 70.3 % (38.7-73.9); Platelet Count 158 T/CUMM (130-400); Red Blood Count 3.04 MC/CUMM (3.8-5.5); Red Cell Distribution Width 14.9 % (9.3-17.3); White Blood Count 7.8 T/CUMM (4-12)
[2017-07-21 05:43] LABS: Calcium 8.4 MG/DL (8.5-10.1); Osmolality,Calculated 310.1 MOS/KG (273-304); Potassium 4.6 MMOL/L (3.5-5.1)
[2017-07-21] MEDS: INSULIN REGULAR 100 UNIT/ML SUBCUT SCH ×4 (08:55→21:44)
[2017-07-21] MEDS: FUROSEMIDE 40 MG/4 ML VIAL IV SCH ×3 (09:00→21:44)
[2017-07-21] MEDS: ENOXAPARIN 30 MG/0.3 ML SYRINGE SUBCUT SCH (09:03)
[2017-07-21] MEDS: DILTIAZEM CD 120 MG CAPSULE PO SCH (09:04)
[2017-07-21] MEDS: FERROUS SULFATE 325 MG TABLET PO SCH ×2 (09:07→21:45)
[2017-07-21] MEDS: MAGNESIUM CHLORIDE 64 MG TABLET PO SCH ×3 (09:07→21:44)
[2017-07-21] MEDS: CHOLECALCIFEROL 5,000 UNIT TABLET PO SCH (09:08)
[2017-07-21] MEDS: CLOPIDOGREL 75 MG TABLET PO SCH (09:08)
[2017-07-21] MEDS: ISOSORBIDE MONONITRATE 60 MG TABLET PO SCH (09:08)
[2017-07-21] MEDS: PREGABALIN 25 MG CAPSULE PO SCH ×2 (09:08→21:45)
[2017-07-21] MEDS: PANTOPRAZOLE 40 MG TABLET PO SCH (09:09)
[2017-07-21] MEDS: ESCITALOPRAM 10 MG TABLET PO SCH (09:09)
[2017-07-21] MEDS: ASPIRIN EC 81 MG TABLET PO SCH (09:09)
[2017-07-21] MEDS: INSULIN GLARGINE 100 UNIT/ML SUBCUT SCH (21:44)
[2017-07-21] MEDS: ATORVASTATIN 40 MG TABLET PO SCH (21:45)
[2017-07-22] MEDS: INSULIN REGULAR 100 UNIT/ML SUBCUT SCH ×4 (08:48→21:12)
[2017-07-22] MEDS: FUROSEMIDE 40 MG/4 ML VIAL IV SCH ×3 (08:49→21:13)
[2017-07-22] MEDS: ENOXAPARIN 30 MG/0.3 ML SYRINGE SUBCUT SCH (08:50)
[2017-07-22] MEDS: MAGNESIUM CHLORIDE 64 MG TABLET PO SCH ×3 (08:52→21:12)
[2017-07-22] MEDS: ISOSORBIDE MONONITRATE 60 MG TABLET PO SCH (08:52)
[2017-07-22] MEDS: CHOLECALCIFEROL 5,000 UNIT TABLET PO SCH (08:53)
[2017-07-22] MEDS: DILTIAZEM CD 120 MG CAPSULE PO SCH (08:53)
[2017-07-22] MEDS: FERROUS SULFATE 325 MG TABLET PO SCH ×2 (08:53→21:12)
[2017-07-22] MEDS: CLOPIDOGREL 75 MG TABLET PO SCH (08:54)
[2017-07-22] MEDS: PANTOPRAZOLE 40 MG TABLET PO SCH (08:55)
[2017-07-22] MEDS: ESCITALOPRAM 10 MG TABLET PO SCH (08:55)
[2017-07-22 10:02] LABS: Basophils % 0.2 % (0.0-0.8); Eosinophils # 0.2 10*3/uL (0.0-0.87); Eosinophils % 2.7 % (0.00-10.9); Hematocrit 29.2 VOL% (35.7-47.0); Hemoglobin 9.4 GM/DL (12.0-16.0); Immature Granulocytes % 0.6 %; Immature Granulocytes Absolute 0.05 #; Lymphocytes # 1.1 10*3/uL (1.4-4.0); Lymphocytes % 13.3 % (21.3-54.2); Mean Corpuscular HGB Conc 32.2 GM/DL (32-36); Mean Corpuscular Hemoglobin 30 PG (27-34); Mean Corpuscular Volume 91.5 FL (87-102); Mean Platelet Volume 11.4 FL (9.6-12.0); Monocytes # 0.8 10*3/uL (0.11-0.8); Monocytes % 9.3 % (1.7-12.7); Neutrophils # 6.2 10*3/uL (1.4-7.4); Neutrophils % 73.9 % (38.7-73.9); Platelet Count 162 T/CUMM (130-400); Red Blood Count 3.19 MC/CUMM (3.8-5.5); Red Cell Distribution Width 14.8 % (9.3-17.3); White Blood Count 8.4 T/CUMM (4-12)
[2017-07-22 10:19] LABS: Calcium 8.5 MG/DL (8.5-10.1); Osmolality,Calculated 311.4 MOS/KG (273-304); Potassium 4.6 MMOL/L (3.5-5.1)
[2017-07-22] MEDS: ASPIRIN EC 81 MG TABLET PO SCH (11:10)
[2017-07-22] MEDS: ATORVASTATIN 40 MG TABLET PO SCH (21:12)
[2017-07-22] MEDS: INSULIN GLARGINE 100 UNIT/ML SUBCUT SCH (21:12)
[2017-07-23 06:30] LABS: Basophils % 0.4 % (0.0-0.8); Eosinophils # 0.3 10*3/uL (0.0-0.87); Eosinophils % 3.7 % (0.00-10.9); Hematocrit 28.7 VOL% (35.7-47.0); Hemoglobin 9.1 GM/DL (12.0-16.0); Immature Granulocytes % 0.7 %; Immature Granulocytes Absolute 0.05 #; Lymphocytes # 1.2 10*3/uL (1.4-4.0); Lymphocytes % 16.3 % (21.3-54.2); Mean Corpuscular HGB Conc 31.7 GM/DL (32-36); Mean Corpuscular Hemoglobin 29 PG (27-34); Mean Corpuscular Volume 91.1 FL (87-102); Mean Platelet Volume 11.6 FL (9.6-12.0); Monocytes # 0.8 10*3/uL (0.11-0.8); Monocytes % 10.9 % (1.7-12.7); Neutrophils # 4.9 10*3/uL (1.4-7.4); Platelet Count 159 T/CUMM (130-400); Red Blood Count 3.15 MC/CUMM (3.8-5.5); White Blood Count 7.3 T/CUMM (4-12)
[2017-07-23 07:09] LABS: Calcium 8.8 MG/DL (8.5-10.1)
[2017-07-23] MEDS: INSULIN REGULAR 100 UNIT/ML SUBCUT SCH ×2 (08:47→13:05)
[2017-07-23] MEDS: FUROSEMIDE 40 MG/4 ML VIAL IV SCH (08:48)
[2017-07-23] MEDS: ESCITALOPRAM 10 MG TABLET PO SCH (08:49)
[2017-07-23] MEDS: ENOXAPARIN 30 MG/0.3 ML SYRINGE SUBCUT SCH (08:49)
[2017-07-23] MEDS: ISOSORBIDE MONONITRATE 60 MG TABLET PO SCH (08:50)
[2017-07-23] MEDS: CHOLECALCIFEROL 5,000 UNIT TABLET PO SCH (08:50)
[2017-07-23] MEDS: MAGNESIUM CHLORIDE 64 MG TABLET PO SCH ×2 (08:51→15:23)
[2017-07-23] MEDS: FERROUS SULFATE 325 MG TABLET PO SCH (08:51)
[2017-07-23] MEDS: DILTIAZEM CD 120 MG CAPSULE PO SCH (08:51)
[2017-07-23] MEDS: ASPIRIN EC 81 MG TABLET PO SCH (08:51)
[2017-07-23] MEDS: PANTOPRAZOLE 40 MG TABLET PO SCH (08:51)
[2017-07-23] MEDS: CLOPIDOGREL 75 MG TABLET PO SCH (08:52)
[2017-07-23 12:39] VITALS: BP 144/65
[2017-07-23] MEDS ORDERED: FUROSEMIDE 80 MG TABLET PO SCH (15:00)
== END 2017-07-23 18:13 | disposition home or self-care (01) | DRG 250 ==
LOC: N.ED 08:29 → N.EDINP 10:20 → N.TELEN 10:44 → N.CVR 22:18 → N.ICU 07-10 16:47 → N.TELES 07-12 00:45
PROVIDERS: ADMIT Internal Medicine Interventional Cardiology; ATTEND Internal Medicine Interventional Cardiology

== ENCOUNTER 2017-12-04 13:44 | Inpatient (IN) ==
[2017-12-04] MEDS ORDERED: ONDANSETRON ODT 4 MG TABLET PO STA (14:49)
[2017-12-04] MEDS ORDERED: NITROGLYCERIN 2% OINT 1 INCH/GM PACK TOP STA (14:50)
[2017-12-04] MEDS ORDERED: ENOXAPARIN 120 MG/0.8 ML SYRINGE SUBCUT STA (14:50)
[2017-12-04] MEDS ORDERED: MORPHINE 4 MG/1 ML VIAL IV STA (14:50)
[2017-12-04 15:34] LABS: Basophils % 0.2 % (0.0-0.8); Eosinophils # 0.1 10*3/uL (0.0-0.87); Eosinophils % 0.7 % (0.00-10.9); Hemoglobin 10.3 GM/DL (12.0-16.0); Immature Granulocytes % 0.4 %; Immature Granulocytes Absolute 0.04 #; Lymphocytes # 0.6 10*3/uL (1.4-4.0); Lymphocytes % 6.3 % (21.3-54.2); Mean Corpuscular HGB Conc 32.2 GM/DL (32-36); Mean Corpuscular Hemoglobin 30 PG (27-34); Mean Corpuscular Volume 92.8 FL (87-102); Mean Platelet Volume 11.5 FL (9.6-12.0); Monocytes # 0.6 10*3/uL (0.11-0.8); Monocytes % 6.3 % (1.7-12.7); Neutrophils # 7.8 10*3/uL (1.4-7.4); Neutrophils % 86.1 % (38.7-73.9); Platelet Count 136 T/CUMM (130-400); Red Blood Count 3.45 MC/CUMM (3.8-5.5); Red Cell Distribution Width 15.7 % (9.3-17.3); White Blood Count 9.1 T/CUMM (4-12)
[2017-12-04 15:43] LABS: INR 1.1; PT Patient Result 11.3 SECS; Partial Thromboplastin Time 25.2 SECS (0-40)
[2017-12-04 16:01] LABS: Albumin 3.8 G/DL (3.4-5.0); Bilirubin,Total 0.4 MG/DL (0.2-1.0); Calcium 8.9 MG/DL (8.5-10.1); Osmolality,Calculated 300.8 MOS/KG (273-304); Potassium 4.7 MMOL/L (3.5-5.1); Total Protein 7.4 G/DL (6.4-8.3)
[2017-12-04 16:04] LABS: Troponin I Only 0.262 NG/ML (0.00-0.045)
[2017-12-04 17:15] LABS: Apearance,Urine CLEAR (Clear); Bilirubin,Urine Negative (Negative); Blood, Urine Negative (Negative); Glucose,Urine (UA) Negative (Negative); Ketones,Urine Negative (Negative); Mucus,Urine Occasional /LPF (Occasional); Nitrite,Urine Negative (Negative); Protein,Urine Negative; RBC,Urine <1 /HPF (0-4); Squamous Epithelial Cell,Urine Occasional /HPF (0-10); Urine Color Yellow (Yellow); Urine Specific Gravity 1.005 (1.001-1.035); Urine Urobilinogen < 2.0 EU/DL (0.2-1.0); WBC,Urine 1 /HPF (0-6)
[2017-12-04] MEDS ORDERED: INSULIN LISPRO 100 UNIT/ML SUBCUT PRN (17:28)
[2017-12-04] MEDS ORDERED: FUROSEMIDE 100 MG/10 ML VIAL IV STA (17:32)
[2017-12-04] MEDS ORDERED: POTASSIUM CHLORIDE RIDER 10 MEQ in PREMIX 1 EACH IV PRN (17:35)
[2017-12-04] MEDS ORDERED: ACETAMINOPHEN 325 MG TABLET PO PRN (17:35)
[2017-12-04] MEDS ORDERED: ZALEPLON 5 MG CAPSULE PO PRN (17:35)
[2017-12-04] MEDS ORDERED: MAGNESIUM SULF RIDER 2 GM in PREMIX 1 EACH IV PRN (17:35)
[2017-12-04] MEDS ORDERED: MAGNESIUM SULF RIDER 4 GM in PREMIX 1 EACH IV PRN (17:35)
[2017-12-04 19:29] LABS: Troponin I Only 0.312 NG/ML (0.00-0.045)
[2017-12-04] MEDS: ALBUTEROL/IPRATROPIUM 3 ML NEB RESP TX SCH ×2 (19:35→23:57)
[2017-12-04] MEDS ORDERED: RANOLAZINE 500 MG TABLET PO SCH (21:00)
[2017-12-04] MEDS: MAGNESIUM CHLORIDE 64 MG TABLET PO SCH (22:39)
[2017-12-04] MEDS: ATORVASTATIN 40 MG TABLET PO SCH (22:40)
[2017-12-04] MEDS: FERROUS SULFATE 325 MG TABLET PO SCH (22:40)
[2017-12-04] MEDS: METOPROLOL TARTRATE 25 MG TABLET PO SCH (22:40)
[2017-12-04 23:59] LABS: Troponin I Only 0.371 NG/ML (0.00-0.045)
[2017-12-05 04:50] LABS: Basophils % 0.1 % (0.0-0.8); Eosinophils # 0.1 10*3/uL (0.0-0.87); Eosinophils % 1.2 % (0.00-10.9); Hematocrit 29.1 VOL% (35.7-47.0); Hemoglobin 9.3 GM/DL (12.0-16.0); Immature Granulocytes % 0.6 %; Immature Granulocytes Absolute 0.04 #; Lymphocytes # 1.1 10*3/uL (1.4-4.0); Lymphocytes % 15.5 % (21.3-54.2); Mean Corpuscular Hemoglobin 29 PG (27-34); Mean Corpuscular Volume 92.1 FL (87-102); Mean Platelet Volume 11.4 FL (9.6-12.0); Monocytes # 0.7 10*3/uL (0.11-0.8); Monocytes % 10.1 % (1.7-12.7); Neutrophils # 4.9 10*3/uL (1.4-7.4); Neutrophils % 72.5 % (38.7-73.9); Platelet Count 134 T/CUMM (130-400); Red Blood Count 3.16 MC/CUMM (3.8-5.5); Red Cell Distribution Width 15.7 % (9.3-17.3); White Blood Count 6.8 T/CUMM (4-12)
[2017-12-05 05:16] LABS: Calcium 8.8 MG/DL (8.5-10.1); Osmolality,Calculated 309.4 MOS/KG (273-304); Potassium 4.5 MMOL/L (3.5-5.1)
[2017-12-05 05:26] LABS: Troponin I Only 0.386 NG/ML (0.00-0.045)
[2017-12-05] MEDS: ALBUTEROL/IPRATROPIUM 3 ML NEB RESP TX SCH ×3 (07:56→18:40)
[2017-12-05] MEDS ORDERED: DILTIAZEM CD 240 MG CAPSULE PO SCH (09:00)
[2017-12-05] MEDS: PANTOPRAZOLE 40 MG TABLET PO SCH ×2 (09:29→09:30)
[2017-12-05] MEDS: MAGNESIUM CHLORIDE 64 MG TABLET PO SCH ×3 (09:29→21:21)
[2017-12-05] MEDS: CLOPIDOGREL 75 MG TABLET PO SCH (09:29)
[2017-12-05] MEDS: ESCITALOPRAM 10 MG TABLET PO SCH (09:29)
[2017-12-05] MEDS: ASPIRIN EC 81 MG TABLET PO SCH (09:29)
[2017-12-05] MEDS: ISOSORBIDE MONONITRATE 60 MG TABLET PO SCH (09:29)
[2017-12-05] MEDS: METOPROLOL TARTRATE 25 MG TABLET PO SCH ×2 (09:30→21:21)
[2017-12-05] MEDS: FERROUS SULFATE 325 MG TABLET PO SCH ×2 (09:30→21:21)
[2017-12-05] MEDS: FUROSEMIDE 40 MG/4 ML VIAL IV SCH ×2 (09:30→16:25)
[2017-12-05] MEDS: ENOXAPARIN 30 MG/0.3 ML SYRINGE SUBCUT SCH ×2 (09:30→10:44)
[2017-12-05] MEDS: DILTIAZEM CD 120 MG CAPSULE PO SCH (10:45)
[2017-12-05] MEDS ORDERED: INSULIN REGULAR 100 UNIT/ML SUBCUT SCH (11:30)
[2017-12-05] MEDS ORDERED: INSULIN LISPRO 100 UNIT/ML SUBCUT SCH (12:30)
[2017-12-05] MEDS: INSULIN DEGLUDEC 35 UNIT SUBCUT SCH (13:31)
[2017-12-05] MEDS: INSULIN LISPRO 100 UNIT/ML SUBCUT SCH ×2 (16:27→22:51)
[2017-12-05] MEDS: ONDANSETRON 4 MG/2 ML VIAL IV PRN (20:42)
[2017-12-05] MEDS: diphenhydrAMINE CAP 25 MG CAPSULE PO PRN (20:42)
[2017-12-05] MEDS: ATORVASTATIN 40 MG TABLET PO SCH (21:21)
[2017-12-05] MEDS ORDERED: NITROGLYCERIN SL 0.4 MG TABLET SL PRN (22:17)
[2017-12-05 22:40] LABS: Basophils % 0.3 % (0.0-0.8); Eosinophils # 0.1 10*3/uL (0.0-0.87); Eosinophils % 1.2 % (0.00-10.9); Hematocrit 27.9 VOL% (35.7-47.0); Hemoglobin 8.6 GM/DL (12.0-16.0); Immature Granulocytes % 0.6 %; Immature Granulocytes Absolute 0.04 #; Lymphocytes % 13.2 % (21.3-54.2); Mean Corpuscular HGB Conc 30.8 GM/DL (32-36); Mean Corpuscular Hemoglobin 30 PG (27-34); Mean Corpuscular Volume 96.2 FL (87-102); Mean Platelet Volume 11.4 FL (9.6-12.0); Monocytes # 0.6 10*3/uL (0.11-0.8); Monocytes % 8.4 % (1.7-12.7); Neutrophils # 5.5 10*3/uL (1.4-7.4); Neutrophils % 76.3 % (38.7-73.9); Platelet Count 114 T/CUMM (130-400); Red Cell Distribution Width 15.7 % (9.3-17.3); White Blood Count 7.3 T/CUMM (4-12)
[2017-12-05 22:42] LABS: Alanine Aminotransferase 45 U/L (13-56); Albumin 3.1 G/DL (3.4-5.0); Alkaline Phosphatase 122 U/L (45-117); Aspartate Amino Transferase 41 U/L (0-37); Bilirubin,Total < 0.39 MG/DL (0.2-1.0); Blood Urea Nitrogen 92 MG/DL (7-18); Calcium 8.5 MG/DL (8.5-10.1); Glucose 243 MG/DL (74-106); Osmolality,Calculated 312.5 MOS/KG (273-304); Potassium 4.3 MMOL/L (3.5-5.1); Sodium 139 MMOL/L (136-145); Total Protein 6.5 G/DL (6.4-8.3)
[2017-12-05] MEDS: MORPHINE 4 MG/1 ML VIAL IV PRN (22:50)
[2017-12-06] MEDS: ALBUTEROL/IPRATROPIUM 3 ML NEB RESP TX SCH ×4 (00:30→18:58)
[2017-12-06 04:58] LABS: Basophils % 0.1 % (0.0-0.8); Eosinophils # 0.1 10*3/uL (0.0-0.87); Eosinophils % 1.6 % (0.00-10.9); Hematocrit 27.6 VOL% (35.7-47.0); Hemoglobin 8.6 GM/DL (12.0-16.0); Immature Granulocytes % 0.4 %; Immature Granulocytes Absolute 0.03 #; Lymphocytes # 1.3 10*3/uL (1.4-4.0); Lymphocytes % 18.6 % (21.3-54.2); Mean Corpuscular HGB Conc 31.2 GM/DL (32-36); Mean Corpuscular Hemoglobin 30 PG (27-34); Mean Corpuscular Volume 94.8 FL (87-102); Mean Platelet Volume 11.8 FL (9.6-12.0); Monocytes # 0.7 10*3/uL (0.11-0.8); Monocytes % 10.2 % (1.7-12.7); Neutrophils # 4.7 10*3/uL (1.4-7.4); Neutrophils % 69.1 % (38.7-73.9); Platelet Count 109 T/CUMM (130-400); Red Blood Count 2.91 MC/CUMM (3.8-5.5); Red Cell Distribution Width 15.6 % (9.3-17.3); White Blood Count 6.8 T/CUMM (4-12)
[2017-12-06 05:18] LABS: Osmolality,Calculated 310.7 MOS/KG (273-304); Potassium 4.3 MMOL/L (3.5-5.1)
[2017-12-06] MEDS: MORPHINE 4 MG/1 ML VIAL IV PRN ×3 (09:23→17:25)
[2017-12-06] MEDS: METOPROLOL TARTRATE 25 MG TABLET PO SCH ×2 (09:25→21:00)
[2017-12-06] MEDS: ASPIRIN EC 81 MG TABLET PO SCH (09:25)
[2017-12-06] MEDS: ISOSORBIDE MONONITRATE 60 MG TABLET PO SCH (09:25)
[2017-12-06] MEDS: DILTIAZEM CD 120 MG CAPSULE PO SCH (09:25)
[2017-12-06] MEDS: PANTOPRAZOLE 40 MG TABLET PO SCH ×2 (09:25→09:56)
[2017-12-06] MEDS: CLOPIDOGREL 75 MG TABLET PO SCH (09:25)
[2017-12-06] MEDS: ONDANSETRON 4 MG/2 ML VIAL IV PRN (09:26)
[2017-12-06] MEDS: FUROSEMIDE 40 MG/4 ML VIAL IV SCH (09:26)
[2017-12-06] MEDS: FERROUS SULFATE 325 MG TABLET PO SCH ×2 (09:26→21:00)
[2017-12-06] MEDS: ESCITALOPRAM 10 MG TABLET PO SCH (09:26)
[2017-12-06] MEDS: INSULIN LISPRO 100 UNIT/ML SUBCUT SCH ×4 (09:27→21:00)
[2017-12-06] MEDS: NITROGLYCERIN SL 0.4 MG TABLET SL PRN ×2 (09:34→09:39)
[2017-12-06] MEDS: MAGNESIUM CHLORIDE 64 MG TABLET PO SCH ×3 (09:56→21:00)
[2017-12-06] MEDS ORDERED: MORPHINE 4 MG/1 ML VIAL IV PRN (10:50)
[2017-12-06] MEDS ORDERED: NITROGLYCERIN DRIP 50 MG/250 ML BOTTLE IV ONE (11:10)
[2017-12-06] MEDS: NITROGLYCERIN DRIP 50 MG/250 ML BOTTLE IV PRN (11:22)
[2017-12-06] MEDS: BUMETANIDE 1 MG/4 ML VIAL IV SCH (16:20)
[2017-12-06] MEDS: INSULIN DEGLUDEC 35 UNIT SUBCUT SCH (20:24)
[2017-12-06] MEDS: ATORVASTATIN 40 MG TABLET PO SCH (21:00)
[2017-12-07] MEDS: ALBUTEROL/IPRATROPIUM 3 ML NEB RESP TX SCH ×4 (00:26→19:27)
[2017-12-07 05:56] LABS: Basophils % 0.1 % (0.0-0.8); Eosinophils # 0.1 10*3/uL (0.0-0.87); Eosinophils % 1.9 % (0.00-10.9); Hemoglobin 8.9 GM/DL (12.0-16.0); Immature Granulocytes % 0.3 %; Immature Granulocytes Absolute 0.02 #; Lymphocytes # 0.9 10*3/uL (1.4-4.0); Lymphocytes % 11.8 % (21.3-54.2); Mean Corpuscular HGB Conc 31.8 GM/DL (32-36); Mean Corpuscular Hemoglobin 30 PG (27-34); Mean Corpuscular Volume 93.3 FL (87-102); Mean Platelet Volume 11.1 FL (9.6-12.0); Monocytes # 0.7 10*3/uL (0.11-0.8); Monocytes % 9.2 % (1.7-12.7); Neutrophils # 5.5 10*3/uL (1.4-7.4); Neutrophils % 76.7 % (38.7-73.9); Platelet Count 124 T/CUMM (130-400); Red Cell Distribution Width 15.8 % (9.3-17.3); White Blood Count 7.2 T/CUMM (4-12)
[2017-12-07 06:28] LABS: Calcium 8.7 MG/DL (8.5-10.1); Osmolality,Calculated 311.4 MOS/KG (273-304); Potassium 4.3 MMOL/L (3.5-5.1)
[2017-12-07] MEDS: INSULIN LISPRO 100 UNIT/ML SUBCUT SCH ×4 (07:20→20:53)
[2017-12-07] MEDS: INSULIN DEGLUDEC 35 UNIT SUBCUT SCH ×2 (08:20→20:27)
[2017-12-07] MEDS: BUMETANIDE 1 MG/4 ML VIAL IV SCH ×2 (08:40→16:20)
[2017-12-07] MEDS ORDERED: metOLazone 5 MG TABLET PO ONE (08:45)
[2017-12-07] MEDS: PANTOPRAZOLE 40 MG TABLET PO SCH (09:15)
[2017-12-07] MEDS: CLOPIDOGREL 75 MG TABLET PO SCH (09:15)
[2017-12-07] MEDS: METOPROLOL SUCCINATE XL 25 MG TABLET PO SCH ×2 (09:15→20:54)
[2017-12-07] MEDS: ESCITALOPRAM 10 MG TABLET PO SCH (09:15)
[2017-12-07] MEDS: MAGNESIUM CHLORIDE 64 MG TABLET PO SCH ×3 (09:15→20:54)
[2017-12-07] MEDS: ISOSORBIDE MONONITRATE 60 MG TABLET PO SCH (09:15)
[2017-12-07] MEDS: FERROUS SULFATE 325 MG TABLET PO SCH ×2 (09:15→20:53)
[2017-12-07] MEDS: ASPIRIN EC 81 MG TABLET PO SCH (09:15)
[2017-12-07] MEDS: MORPHINE 4 MG/1 ML VIAL IV PRN ×2 (09:55→13:20)
[2017-12-07 10:04] LABS: Apearance,Urine CLEAR (Clear); Bilirubin,Urine Negative (Negative); Blood, Urine Negative (Negative); Glucose,Urine (UA) Negative (Negative); Hyaline Casts,Urine 4 /LPF (0-3); Ketones,Urine Negative (Negative); Mucus,Urine Occasional /LPF (Occasional); Nitrite,Urine Negative (Negative); Protein,Urine Negative; Urine Color Yellow (Yellow); Urine Urobilinogen < 2.0 EU/DL (0.2-1.0); WBC,Urine <1 /HPF (0-6)
[2017-12-07] MEDS: ENOXAPARIN 30 MG/0.3 ML SYRINGE SUBCUT SCH (12:25)
[2017-12-07] MEDS: ONDANSETRON 4 MG/2 ML VIAL IV PRN ×2 (14:20→23:39)
[2017-12-07] MEDS: ATORVASTATIN 40 MG TABLET PO SCH (20:54)
[2017-12-07] MEDS: BISACODYL 5 MG TABLET PO PRN (22:02)
[2017-12-08] MEDS: ALBUTEROL/IPRATROPIUM 3 ML NEB RESP TX SCH ×4 (00:56→19:39)
[2017-12-08 05:44] LABS: Basophils % 0.1 % (0.0-0.8); Eosinophils # 0.1 10*3/uL (0.0-0.87); Eosinophils % 0.8 % (0.00-10.9); Hematocrit 26.9 VOL% (35.7-47.0); Hemoglobin 8.6 GM/DL (12.0-16.0); Immature Granulocytes % 0.3 %; Immature Granulocytes Absolute 0.03 #; Lymphocytes # 0.7 10*3/uL (1.4-4.0); Lymphocytes % 7.8 % (21.3-54.2); Mean Corpuscular Hemoglobin 30 PG (27-34); Mean Corpuscular Volume 92.4 FL (87-102); Mean Platelet Volume 11.9 FL (9.6-12.0); Monocytes # 0.7 10*3/uL (0.11-0.8); Neutrophils # 7.7 10*3/uL (1.4-7.4); Platelet Count 134 T/CUMM (130-400); Red Blood Count 2.91 MC/CUMM (3.8-5.5); Red Cell Distribution Width 15.8 % (9.3-17.3); White Blood Count 9.3 T/CUMM (4-12)
[2017-12-08 06:13] LABS: Calcium 8.4 MG/DL (8.5-10.1); Osmolality,Calculated 310.5 MOS/KG (273-304)
[2017-12-08] MEDS: INSULIN LISPRO 100 UNIT/ML SUBCUT SCH ×4 (07:28→20:11)
[2017-12-08] MEDS: BUMETANIDE 1 MG/4 ML VIAL IV SCH ×2 (08:16→15:44)
[2017-12-08] MEDS: INSULIN DEGLUDEC 35 UNIT SUBCUT SCH ×2 (08:17→20:23)
[2017-12-08] MEDS: ENOXAPARIN 30 MG/0.3 ML SYRINGE SUBCUT SCH (09:33)
[2017-12-08] MEDS: FERROUS SULFATE 325 MG TABLET PO SCH ×2 (09:33→20:18)
[2017-12-08] MEDS: CLOPIDOGREL 75 MG TABLET PO SCH (09:33)
[2017-12-08] MEDS: RANOLAZINE 500 MG TABLET PO SCH ×2 (09:33→20:18)
[2017-12-08] MEDS: ASPIRIN EC 81 MG TABLET PO SCH (09:34)
[2017-12-08] MEDS: ESCITALOPRAM 10 MG TABLET PO SCH (09:34)
[2017-12-08] MEDS: ISOSORBIDE MONONITRATE 60 MG TABLET PO SCH (09:34)
[2017-12-08] MEDS: METOPROLOL SUCCINATE XL 25 MG TABLET PO SCH ×2 (09:34→20:18)
[2017-12-08] MEDS: PANTOPRAZOLE 40 MG TABLET PO SCH (09:35)
[2017-12-08] MEDS: metOLazone 5 MG TABLET PO SCH (09:37)
[2017-12-08] MEDS: MAGNESIUM CHLORIDE 64 MG TABLET PO SCH ×3 (09:37→20:12)
[2017-12-08] MEDS: MORPHINE 4 MG/1 ML VIAL IV PRN (12:56)
[2017-12-08] MEDS: BISACODYL 5 MG TABLET PO PRN (20:18)
[2017-12-08] MEDS: ATORVASTATIN 40 MG TABLET PO SCH (20:18)
[2017-12-09] MEDS: ALBUTEROL/IPRATROPIUM 3 ML NEB RESP TX SCH ×4 (01:25→19:14)
[2017-12-09 05:57] LABS: Basophils % 0.1 % (0.0-0.8); Eosinophils # 0.1 10*3/uL (0.0-0.87); Hematocrit 25.8 VOL% (35.7-47.0); Hemoglobin 8.4 GM/DL (12.0-16.0); Immature Granulocytes % 0.4 %; Immature Granulocytes Absolute 0.03 #; Lymphocytes # 0.7 10*3/uL (1.4-4.0); Lymphocytes % 9.5 % (21.3-54.2); Mean Corpuscular HGB Conc 32.6 GM/DL (32-36); Mean Corpuscular Hemoglobin 30 PG (27-34); Mean Corpuscular Volume 91.5 FL (87-102); Mean Platelet Volume 11.5 FL (9.6-12.0); Monocytes # 0.9 10*3/uL (0.11-0.8); Monocytes % 12.8 % (1.7-12.7); Neutrophils # 5.3 10*3/uL (1.4-7.4); Neutrophils % 76.2 % (38.7-73.9); Platelet Count 130 T/CUMM (130-400); Red Blood Count 2.82 MC/CUMM (3.8-5.5); Red Cell Distribution Width 15.9 % (9.3-17.3)
[2017-12-09 06:03] LABS: Calcium 8.2 MG/DL (8.5-10.1); Osmolality,Calculated 313.3 MOS/KG (273-304); Potassium 3.3 MMOL/L (3.5-5.1)
[2017-12-09] MEDS: INSULIN LISPRO 100 UNIT/ML SUBCUT SCH ×4 (07:28→21:05)
[2017-12-09] MEDS: INSULIN DEGLUDEC 35 UNIT SUBCUT SCH ×2 (08:15→21:09)
[2017-12-09] MEDS: BUMETANIDE 1 MG/4 ML VIAL IV SCH ×2 (08:15→16:27)
[2017-12-09] MEDS: RANOLAZINE 500 MG TABLET PO SCH ×2 (08:54→21:04)
[2017-12-09] MEDS: FERROUS SULFATE 325 MG TABLET PO SCH ×2 (08:54→21:04)
[2017-12-09] MEDS: ISOSORBIDE MONONITRATE 60 MG TABLET PO SCH (08:55)
[2017-12-09] MEDS: PANTOPRAZOLE 40 MG TABLET PO SCH (08:55)
[2017-12-09] MEDS: ASPIRIN EC 81 MG TABLET PO SCH (08:55)
[2017-12-09] MEDS: POTASSIUM CHLORIDE 20 MEQ TABLET PO PRN ×3 (08:55→21:04)
[2017-12-09] MEDS: METOPROLOL SUCCINATE XL 25 MG TABLET PO SCH ×2 (08:56→21:04)
[2017-12-09] MEDS: metOLazone 5 MG TABLET PO SCH (08:56)
[2017-12-09] MEDS: CLOPIDOGREL 75 MG TABLET PO SCH (08:56)
[2017-12-09] MEDS: ENOXAPARIN 30 MG/0.3 ML SYRINGE SUBCUT SCH (08:57)
[2017-12-09] MEDS: ESCITALOPRAM 10 MG TABLET PO SCH (08:59)
[2017-12-09] MEDS: MAGNESIUM CHLORIDE 64 MG TABLET PO SCH ×3 (08:59→20:54)
[2017-12-09] MEDS: NITROGLYCERIN DRIP 50 MG/250 ML BOTTLE IV PRN (13:05)
[2017-12-09] MEDS: ATORVASTATIN 40 MG TABLET PO SCH (21:04)
[2017-12-10] MEDS: ALBUTEROL/IPRATROPIUM 3 ML NEB RESP TX SCH ×4 (00:57→19:12)
[2017-12-10] MEDS: diphenhydrAMINE CAP 25 MG CAPSULE PO PRN ×2 (01:14→21:45)
[2017-12-10 05:07] LABS: Basophils % 0.3 % (0.0-0.8); Eosinophils # 0.1 10*3/uL (0.0-0.87); Eosinophils % 1.7 % (0.00-10.9); Hematocrit 27.1 VOL% (35.7-47.0); Hemoglobin 8.6 GM/DL (12.0-16.0); Immature Granulocytes % 0.5 %; Immature Granulocytes Absolute 0.03 #; Lymphocytes # 0.7 10*3/uL (1.4-4.0); Lymphocytes % 11.3 % (21.3-54.2); Mean Corpuscular HGB Conc 31.7 GM/DL (32-36); Mean Corpuscular Hemoglobin 30 PG (27-34); Mean Corpuscular Volume 93.8 FL (87-102); Mean Platelet Volume 11.6 FL (9.6-12.0); Monocytes # 0.9 10*3/uL (0.11-0.8); Monocytes % 13.5 % (1.7-12.7); Neutrophils # 4.6 10*3/uL (1.4-7.4); Neutrophils % 72.7 % (38.7-73.9); Platelet Count 149 T/CUMM (130-400); Red Blood Count 2.89 MC/CUMM (3.8-5.5); Red Cell Distribution Width 15.8 % (9.3-17.3); White Blood Count 6.4 T/CUMM (4-12)
[2017-12-10 05:31] LABS: Osmolality,Calculated 316.1 MOS/KG (273-304); Potassium 3.4 MMOL/L (3.5-5.1)
[2017-12-10] MEDS: BUMETANIDE 1 MG/4 ML VIAL IV SCH ×2 (07:42→16:49)
[2017-12-10] MEDS: POTASSIUM CHLORIDE 20 MEQ TABLET PO PRN ×3 (07:42→18:11)
[2017-12-10] MEDS: INSULIN DEGLUDEC 35 UNIT SUBCUT SCH ×2 (07:52→20:45)
[2017-12-10] MEDS: INSULIN LISPRO 100 UNIT/ML SUBCUT SCH ×4 (07:54→21:42)
[2017-12-10] MEDS: ISOSORBIDE MONONITRATE 60 MG TABLET PO SCH (08:50)
[2017-12-10] MEDS: ESCITALOPRAM 10 MG TABLET PO SCH (08:51)
[2017-12-10] MEDS: ASPIRIN EC 81 MG TABLET PO SCH (08:51)
[2017-12-10] MEDS: FERROUS SULFATE 325 MG TABLET PO SCH ×2 (08:51→21:45)
[2017-12-10] MEDS: RANOLAZINE 500 MG TABLET PO SCH ×2 (08:51→21:45)
[2017-12-10] MEDS: METOPROLOL SUCCINATE XL 25 MG TABLET PO SCH ×2 (08:51→21:45)
[2017-12-10] MEDS: CLOPIDOGREL 75 MG TABLET PO SCH (08:51)
[2017-12-10] MEDS: PANTOPRAZOLE 40 MG TABLET PO SCH (08:52)
[2017-12-10] MEDS: ENOXAPARIN 30 MG/0.3 ML SYRINGE SUBCUT SCH (08:52)
[2017-12-10] MEDS: metOLazone 5 MG TABLET PO SCH (08:52)
[2017-12-10] MEDS: MAGNESIUM CHLORIDE 64 MG TABLET PO SCH ×3 (09:31→21:36)
[2017-12-10] MEDS ORDERED: SIMETHICONE CHEW 80 MG TABLET PO PRN (16:42)
[2017-12-10] MEDS: ATORVASTATIN 40 MG TABLET PO SCH (21:44)
[2017-12-11] MEDS: ALBUTEROL/IPRATROPIUM 3 ML NEB RESP TX SCH ×4 (00:45→19:22)
[2017-12-11 06:03] LABS: Basophils % 0.3 % (0.0-0.8); Eosinophils # 0.2 10*3/uL (0.0-0.87); Hemoglobin 9.6 GM/DL (12.0-16.0); Immature Granulocytes % 0.3 %; Immature Granulocytes Absolute 0.02 #; Lymphocytes # 0.7 10*3/uL (1.4-4.0); Lymphocytes % 10.7 % (21.3-54.2); Mean Corpuscular Hemoglobin 30 PG (27-34); Mean Corpuscular Volume 92.9 FL (87-102); Mean Platelet Volume 10.8 FL (9.6-12.0); Monocytes # 0.9 10*3/uL (0.11-0.8); Neutrophils # 4.8 10*3/uL (1.4-7.4); Neutrophils % 72.7 % (38.7-73.9); Platelet Count 170 T/CUMM (130-400); Red Blood Count 3.23 MC/CUMM (3.8-5.5); Red Cell Distribution Width 15.7 % (9.3-17.3); White Blood Count 6.6 T/CUMM (4-12)
[2017-12-11 06:26] LABS: Calcium 9.2 MG/DL (8.5-10.1); Osmolality,Calculated 322.3 MOS/KG (273-304); Potassium 3.6 MMOL/L (3.5-5.1)
[2017-12-11] MEDS ORDERED: MAGNESIUM SULF RIDER 2 GM in PREMIX 1 EACH IV PRN (07:57)
[2017-12-11] MEDS ORDERED: POTASSIUM CHLORIDE RIDER 10 MEQ in PREMIX 1 EACH IV PRN (07:57)
[2017-12-11] MEDS: INSULIN LISPRO 100 UNIT/ML SUBCUT SCH ×4 (08:45→21:33)
[2017-12-11] MEDS: ENOXAPARIN 30 MG/0.3 ML SYRINGE SUBCUT SCH (08:47)
[2017-12-11] MEDS: POTASSIUM CHLORIDE 20 MEQ TABLET PO PRN ×2 (08:51→13:02)
[2017-12-11] MEDS: PANTOPRAZOLE 40 MG TABLET PO SCH (08:51)
[2017-12-11] MEDS: FERROUS SULFATE 325 MG TABLET PO SCH ×2 (08:51→21:30)
[2017-12-11] MEDS: ASPIRIN EC 81 MG TABLET PO SCH (08:51)
[2017-12-11] MEDS: RANOLAZINE 500 MG TABLET PO SCH ×2 (08:51→21:30)
[2017-12-11] MEDS: MAGNESIUM CHLORIDE 64 MG TABLET PO SCH ×3 (08:51→21:29)
[2017-12-11] MEDS: metOLazone 5 MG TABLET PO SCH (08:52)
[2017-12-11] MEDS: METOPROLOL SUCCINATE XL 25 MG TABLET PO SCH ×2 (08:52→21:31)
[2017-12-11] MEDS: CLOPIDOGREL 75 MG TABLET PO SCH (08:52)
[2017-12-11] MEDS: ESCITALOPRAM 10 MG TABLET PO SCH (08:52)
[2017-12-11] MEDS: ISOSORBIDE MONONITRATE 60 MG TABLET PO SCH (08:52)
[2017-12-11] MEDS: BUMETANIDE 1 MG/4 ML VIAL IV SCH ×2 (09:12→17:01)
[2017-12-11] MEDS: INSULIN DEGLUDEC 35 UNIT SUBCUT SCH ×2 (09:25→20:30)
[2017-12-11] MEDS: DESITIN 4OZ/NYSTATIN 15 GRAM MIXTURE PASTE TOP SCH ×2 (11:24→23:01)
[2017-12-11] MEDS: diphenhydrAMINE CAP 25 MG CAPSULE PO PRN (21:29)
[2017-12-11] MEDS: ATORVASTATIN 40 MG TABLET PO SCH (21:30)
[2017-12-12] MEDS: ALBUTEROL/IPRATROPIUM 3 ML NEB RESP TX SCH ×4 (00:50→19:56)
[2017-12-12 05:45] LABS: Basophils % 0.3 % (0.0-0.8); Eosinophils # 0.2 10*3/uL (0.0-0.87); Eosinophils % 2.9 % (0.00-10.9); Hematocrit 31.7 VOL% (35.7-47.0); Hemoglobin 9.9 GM/DL (12.0-16.0); Immature Granulocytes % 0.3 %; Immature Granulocytes Absolute 0.02 #; Lymphocytes # 0.9 10*3/uL (1.4-4.0); Mean Corpuscular HGB Conc 31.2 GM/DL (32-36); Mean Corpuscular Hemoglobin 29 PG (27-34); Mean Corpuscular Volume 94.1 FL (87-102); Mean Platelet Volume 10.5 FL (9.6-12.0); Monocytes # 0.9 10*3/uL (0.11-0.8); Neutrophils # 4.2 10*3/uL (1.4-7.4); Neutrophils % 67.5 % (38.7-73.9); Platelet Count 187 T/CUMM (130-400); Red Blood Count 3.37 MC/CUMM (3.8-5.5); Red Cell Distribution Width 15.3 % (9.3-17.3); White Blood Count 6.2 T/CUMM (4-12)
[2017-12-12 05:55] LABS: PT Patient Result 10.7 SECS
[2017-12-12 06:09] LABS: Calcium 9.4 MG/DL (8.5-10.1); Osmolality,Calculated 321.1 MOS/KG (273-304); Potassium 3.5 MMOL/L (3.5-5.1)
[2017-12-12] MEDS: INSULIN LISPRO 100 UNIT/ML SUBCUT SCH ×4 (08:56→21:41)
[2017-12-12] MEDS: BUMETANIDE 1 MG/4 ML VIAL IV SCH ×2 (08:56→16:32)
[2017-12-12] MEDS: ENOXAPARIN 30 MG/0.3 ML SYRINGE SUBCUT SCH (08:57)
[2017-12-12] MEDS: MAGNESIUM CHLORIDE 64 MG TABLET PO SCH ×3 (08:59→21:37)
[2017-12-12] MEDS: ISOSORBIDE MONONITRATE 60 MG TABLET PO SCH (08:59)
[2017-12-12] MEDS: RANOLAZINE 500 MG TABLET PO SCH ×2 (09:00→21:38)
[2017-12-12] MEDS: METOPROLOL SUCCINATE XL 25 MG TABLET PO SCH ×2 (09:00→21:37)
[2017-12-12] MEDS: CLOPIDOGREL 75 MG TABLET PO SCH (09:00)
[2017-12-12] MEDS: metOLazone 5 MG TABLET PO SCH (09:01)
[2017-12-12] MEDS: FERROUS SULFATE 325 MG TABLET PO SCH ×2 (09:01→21:37)
[2017-12-12] MEDS: ESCITALOPRAM 10 MG TABLET PO SCH (09:02)
[2017-12-12] MEDS: PANTOPRAZOLE 40 MG TABLET PO SCH (09:02)
[2017-12-12] MEDS: ASPIRIN EC 81 MG TABLET PO SCH (09:03)
[2017-12-12] MEDS: DESITIN 4OZ/NYSTATIN 15 GRAM MIXTURE PASTE TOP SCH ×2 (09:15→22:02)
[2017-12-12] MEDS: INSULIN DEGLUDEC 35 UNIT SUBCUT SCH ×2 (09:18→21:40)
[2017-12-12] MEDS ORDERED: diphenhydrAMINE CAP 25 MG CAPSULE PO ONE (09:30)
[2017-12-12] MEDS ORDERED: DIAZEPAM 5 MG TABLET PO ONE (09:30)
[2017-12-12] MEDS ORDERED: fentaNYL 100 MCG/2 ML VIAL ONE (09:59)
[2017-12-12] MEDS ORDERED: MIDAZOLAM 2 MG/2 ML VIAL ONE (09:59)
[2017-12-12] MEDS ORDERED: LIDOCAINE 1%/EPI INJ 20 ML VIAL ONE (09:59)
[2017-12-12] MEDS ORDERED: HEPARIN 5,000 UNIT/1 ML VIAL ONE (10:31)
[2017-12-12] MEDS ORDERED: CLOPIDOGREL 300 MG TABLET ONE (10:47)
[2017-12-12] MEDS ORDERED: ZALEPLON 5 MG CAPSULE PO PRN (12:07)
[2017-12-12] MEDS ORDERED: SODIUM CHLORIDE 0.45% 1,000 ML IV SCH (12:30)
[2017-12-12 13:49] LABS: Calcium 9.5 MG/DL (8.5-10.1); Osmolality,Calculated 321.3 MOS/KG (273-304); Potassium 3.7 MMOL/L (3.5-5.1)
[2017-12-12] MEDS: MORPHINE 4 MG/1 ML VIAL IV PRN (18:40)
[2017-12-12] MEDS: ATORVASTATIN 40 MG TABLET PO SCH (21:37)
[2017-12-12] MEDS: POTASSIUM CHLORIDE 20 MEQ TABLET PO PRN (21:37)
[2017-12-12] MEDS: diphenhydrAMINE CAP 25 MG CAPSULE PO PRN (21:37)
[2017-12-13] MEDS: ALBUTEROL/IPRATROPIUM 3 ML NEB RESP TX SCH ×4 (01:14→19:54)
[2017-12-13 04:56] LABS: Basophils % 0.3 % (0.0-0.8); Eosinophils # 0.2 10*3/uL (0.0-0.87); Eosinophils % 3.5 % (0.00-10.9); Hematocrit 31.6 VOL% (35.7-47.0); Immature Granulocytes % 0.3 %; Immature Granulocytes Absolute 0.02 #; Lymphocytes # 1.1 10*3/uL (1.4-4.0); Mean Corpuscular HGB Conc 31.6 GM/DL (32-36); Mean Corpuscular Hemoglobin 29 PG (27-34); Mean Corpuscular Volume 92.1 FL (87-102); Mean Platelet Volume 10.7 FL (9.6-12.0); Monocytes # 0.9 10*3/uL (0.11-0.8); Neutrophils # 4.3 10*3/uL (1.4-7.4); Neutrophils % 64.9 % (38.7-73.9); Platelet Count 189 T/CUMM (130-400); Red Blood Count 3.43 MC/CUMM (3.8-5.5); Red Cell Distribution Width 15.2 % (9.3-17.3); White Blood Count 6.6 T/CUMM (4-12)
[2017-12-13 05:17] LABS: Calcium 9.2 MG/DL (8.5-10.1); Osmolality,Calculated 322.1 MOS/KG (273-304); Potassium 3.5 MMOL/L (3.5-5.1)
[2017-12-13] MEDS: INSULIN LISPRO 100 UNIT/ML SUBCUT SCH ×4 (07:33→22:00)
[2017-12-13] MEDS: ASPIRIN EC 81 MG TABLET PO SCH (08:08)
[2017-12-13] MEDS: POTASSIUM CHLORIDE 20 MEQ TABLET PO PRN (08:08)
[2017-12-13] MEDS: FERROUS SULFATE 325 MG TABLET PO SCH ×2 (08:08→22:00)
[2017-12-13] MEDS: RANOLAZINE 500 MG TABLET PO SCH ×2 (08:08→22:00)
[2017-12-13] MEDS: ISOSORBIDE MONONITRATE 60 MG TABLET PO SCH (08:08)
[2017-12-13] MEDS: ESCITALOPRAM 10 MG TABLET PO SCH (08:09)
[2017-12-13] MEDS: PANTOPRAZOLE 40 MG TABLET PO SCH (08:09)
[2017-12-13] MEDS: metOLazone 5 MG TABLET PO SCH (08:09)
[2017-12-13] MEDS: ENOXAPARIN 30 MG/0.3 ML SYRINGE SUBCUT SCH (08:09)
[2017-12-13] MEDS: CLOPIDOGREL 75 MG TABLET PO SCH (08:09)
[2017-12-13] MEDS: BUMETANIDE 1 MG/4 ML VIAL IV SCH ×2 (08:09→16:37)
[2017-12-13] MEDS: MAGNESIUM CHLORIDE 64 MG TABLET PO SCH ×3 (08:09→22:00)
[2017-12-13] MEDS: METOPROLOL SUCCINATE XL 25 MG TABLET PO SCH ×3 (08:10→22:00)
[2017-12-13] MEDS: DESITIN 4OZ/NYSTATIN 15 GRAM MIXTURE PASTE TOP SCH ×2 (08:10→22:01)
[2017-12-13] MEDS: INSULIN DEGLUDEC 35 UNIT SUBCUT SCH ×2 (08:10→22:00)
[2017-12-13] MEDS ORDERED: POTASSIUM CHLORIDE 10 MEQ TABLET PO SCH (09:00)
[2017-12-13] MEDS: ATORVASTATIN 40 MG TABLET PO SCH (22:00)
[2017-12-13] MEDS: diphenhydrAMINE CAP 25 MG CAPSULE PO PRN (22:02)
[2017-12-14] MEDS: ALBUTEROL/IPRATROPIUM 3 ML NEB RESP TX SCH ×4 (00:48→19:31)
[2017-12-14 05:06] LABS: Basophils % 0.1 % (0.0-0.8); Eosinophils # 0.2 10*3/uL (0.0-0.87); Eosinophils % 2.9 % (0.00-10.9); Hematocrit 32.5 VOL% (35.7-47.0); Hemoglobin 10.4 GM/DL (12.0-16.0); Immature Granulocytes % 0.4 %; Immature Granulocytes Absolute 0.03 #; Lymphocytes # 1.2 10*3/uL (1.4-4.0); Lymphocytes % 17.2 % (21.3-54.2); Mean Corpuscular Hemoglobin 29 PG (27-34); Mean Corpuscular Volume 91.3 FL (87-102); Mean Platelet Volume 10.2 FL (9.6-12.0); Monocytes # 0.9 10*3/uL (0.11-0.8); Monocytes % 13.4 % (1.7-12.7); Neutrophils # 4.5 10*3/uL (1.4-7.4); Platelet Count 193 T/CUMM (130-400); Red Blood Count 3.56 MC/CUMM (3.8-5.5); Red Cell Distribution Width 14.8 % (9.3-17.3); White Blood Count 6.9 T/CUMM (4-12)
[2017-12-14 05:45] LABS: Calcium 9.2 MG/DL (8.5-10.1); Osmolality,Calculated 323.3 MOS/KG (273-304); Potassium 3.2 MMOL/L (3.5-5.1)
[2017-12-14] MEDS: POTASSIUM CHLORIDE 20 MEQ TABLET PO PRN ×4 (06:08→17:26)
[2017-12-14] MEDS: ESCITALOPRAM 10 MG TABLET PO SCH (09:57)
[2017-12-14] MEDS: metOLazone 5 MG TABLET PO SCH (09:58)
[2017-12-14] MEDS: ISOSORBIDE MONONITRATE 60 MG TABLET PO SCH (09:58)
[2017-12-14] MEDS: METOPROLOL SUCCINATE XL 25 MG TABLET PO SCH ×2 (09:58→20:59)
[2017-12-14] MEDS: MAGNESIUM CHLORIDE 64 MG TABLET PO SCH ×3 (09:58→20:59)
[2017-12-14] MEDS: FERROUS SULFATE 325 MG TABLET PO SCH ×2 (09:58→21:00)
[2017-12-14] MEDS: POTASSIUM CHLORIDE 10 MEQ TABLET PO SCH ×2 (09:58→20:59)
[2017-12-14] MEDS: PANTOPRAZOLE 40 MG TABLET PO SCH (09:58)
[2017-12-14] MEDS: CLOPIDOGREL 75 MG TABLET PO SCH (09:58)
[2017-12-14] MEDS: RANOLAZINE 500 MG TABLET PO SCH ×2 (09:58→20:59)
[2017-12-14] MEDS: ASPIRIN EC 81 MG TABLET PO SCH (09:58)
[2017-12-14] MEDS: INSULIN LISPRO 100 UNIT/ML SUBCUT SCH ×4 (09:59→20:59)
[2017-12-14] MEDS: INSULIN DEGLUDEC 35 UNIT SUBCUT SCH ×2 (10:02→21:01)
[2017-12-14] MEDS: ENOXAPARIN 30 MG/0.3 ML SYRINGE SUBCUT SCH (10:02)
[2017-12-14] MEDS: DESITIN 4OZ/NYSTATIN 15 GRAM MIXTURE PASTE TOP SCH ×2 (10:03→21:03)
[2017-12-14] MEDS: BUMETANIDE 1 MG/4 ML VIAL IV SCH (10:07)
[2017-12-14] MEDS ORDERED: FUROSEMIDE 80 MG TABLET PO SCH (16:00)
[2017-12-14] MEDS: FUROSEMIDE 80 MG TABLET PO SCH (17:25)
[2017-12-14] MEDS: diphenhydrAMINE CAP 25 MG CAPSULE PO PRN (17:45)
[2017-12-14] MEDS: ATORVASTATIN 40 MG TABLET PO SCH (20:59)
[2017-12-15] MEDS: ALBUTEROL/IPRATROPIUM 3 ML NEB RESP TX SCH ×4 (01:19→19:24)
[2017-12-15 03:43] LABS: Basophils % 0.4 % (0.0-0.8); Eosinophils # 0.2 10*3/uL (0.0-0.87); Eosinophils % 2.4 % (0.00-10.9); Hematocrit 31.9 VOL% (35.7-47.0); Hemoglobin 10.2 GM/DL (12.0-16.0); Immature Granulocytes % 0.4 %; Immature Granulocytes Absolute 0.03 #; Lymphocytes # 1.5 10*3/uL (1.4-4.0); Lymphocytes % 19.4 % (21.3-54.2); Mean Corpuscular Hemoglobin 29 PG (27-34); Mean Corpuscular Volume 90.9 FL (87-102); Mean Platelet Volume 10.6 FL (9.6-12.0); Monocytes % 12.6 % (1.7-12.7); Neutrophils # 4.9 10*3/uL (1.4-7.4); Neutrophils % 64.8 % (38.7-73.9); Platelet Count 197 T/CUMM (130-400); Red Blood Count 3.51 MC/CUMM (3.8-5.5); Red Cell Distribution Width 14.9 % (9.3-17.3); White Blood Count 7.5 T/CUMM (4-12)
[2017-12-15 04:11] LABS: Calcium 9.3 MG/DL (8.5-10.1); Osmolality,Calculated 323.4 MOS/KG (273-304)
[2017-12-15] MEDS: INSULIN DEGLUDEC 35 UNIT SUBCUT SCH ×2 (08:58→21:19)
[2017-12-15] MEDS: METOPROLOL SUCCINATE XL 25 MG TABLET PO SCH ×2 (08:59→21:20)
[2017-12-15] MEDS: MAGNESIUM CHLORIDE 64 MG TABLET PO SCH ×3 (09:00→21:20)
[2017-12-15] MEDS: FUROSEMIDE 80 MG TABLET PO SCH ×2 (09:00→15:50)
[2017-12-15] MEDS: ISOSORBIDE MONONITRATE 60 MG TABLET PO SCH (09:00)
[2017-12-15] MEDS: FERROUS SULFATE 325 MG TABLET PO SCH ×2 (09:00→21:20)
[2017-12-15] MEDS: ESCITALOPRAM 10 MG TABLET PO SCH (09:01)
[2017-12-15] MEDS: POTASSIUM CHLORIDE 10 MEQ TABLET PO SCH ×2 (09:01→21:20)
[2017-12-15] MEDS: metOLazone 5 MG TABLET PO SCH (09:01)
[2017-12-15] MEDS: ASPIRIN EC 81 MG TABLET PO SCH (09:01)
[2017-12-15] MEDS: CLOPIDOGREL 75 MG TABLET PO SCH (09:01)
[2017-12-15] MEDS: PANTOPRAZOLE 40 MG TABLET PO SCH (09:02)
[2017-12-15] MEDS: INSULIN LISPRO 100 UNIT/ML SUBCUT SCH ×4 (09:02→21:21)
[2017-12-15] MEDS: ENOXAPARIN 30 MG/0.3 ML SYRINGE SUBCUT SCH (09:02)
[2017-12-15] MEDS: RANOLAZINE 500 MG TABLET PO SCH ×2 (09:02→21:20)
[2017-12-15] MEDS: DESITIN 4OZ/NYSTATIN 15 GRAM MIXTURE PASTE TOP SCH ×2 (09:03→21:21)
[2017-12-15] MEDS: ATORVASTATIN 40 MG TABLET PO SCH (21:20)
[2017-12-15] MEDS: diphenhydrAMINE CAP 25 MG CAPSULE PO PRN (21:20)
[2017-12-16] MEDS: ALBUTEROL/IPRATROPIUM 3 ML NEB RESP TX SCH ×2 (01:07→07:50)
[2017-12-16 03:51] LABS: Basophils % 0.3 % (0.0-0.8); Eosinophils # 0.2 10*3/uL (0.0-0.87); Eosinophils % 2.1 % (0.00-10.9); Hematocrit 31.7 VOL% (35.7-47.0); Immature Granulocytes % 0.4 %; Immature Granulocytes Absolute 0.03 #; Lymphocytes # 1.1 10*3/uL (1.4-4.0); Lymphocytes % 15.1 % (21.3-54.2); Mean Corpuscular HGB Conc 31.5 GM/DL (32-36); Mean Corpuscular Hemoglobin 29 PG (27-34); Mean Corpuscular Volume 90.8 FL (87-102); Mean Platelet Volume 10.9 FL (9.6-12.0); Monocytes # 0.9 10*3/uL (0.11-0.8); Monocytes % 12.6 % (1.7-12.7); Neutrophils % 69.5 % (38.7-73.9); Platelet Count 209 T/CUMM (130-400); Red Blood Count 3.49 MC/CUMM (3.8-5.5); Red Cell Distribution Width 14.8 % (9.3-17.3); White Blood Count 7.2 T/CUMM (4-12)
[2017-12-16 04:37] LABS: Calcium 9.4 MG/DL (8.5-10.1); Osmolality,Calculated 321.4 MOS/KG (273-304); Potassium 3.3 MMOL/L (3.5-5.1)
[2017-12-16] MEDS: POTASSIUM CHLORIDE 20 MEQ TABLET PO PRN (06:30)
[2017-12-16] MEDS: INSULIN LISPRO 100 UNIT/ML SUBCUT SCH (08:13)
[2017-12-16 08:17] VITALS: BP 122/61
[2017-12-16] MEDS: ISOSORBIDE MONONITRATE 60 MG TABLET PO SCH (09:44)
[2017-12-16] MEDS: POTASSIUM CHLORIDE 10 MEQ TABLET PO SCH (09:44)
[2017-12-16] MEDS: RANOLAZINE 500 MG TABLET PO SCH (09:44)
[2017-12-16] MEDS: FUROSEMIDE 80 MG TABLET PO SCH (09:45)
[2017-12-16] MEDS: PANTOPRAZOLE 40 MG TABLET PO SCH (09:45)
[2017-12-16] MEDS: CLOPIDOGREL 75 MG TABLET PO SCH (09:45)
[2017-12-16] MEDS: FERROUS SULFATE 325 MG TABLET PO SCH (09:45)
[2017-12-16] MEDS: INSULIN DEGLUDEC 35 UNIT SUBCUT SCH (09:45)
[2017-12-16] MEDS: METOPROLOL SUCCINATE XL 25 MG TABLET PO SCH (09:45)
[2017-12-16] MEDS: MAGNESIUM CHLORIDE 64 MG TABLET PO SCH (09:45)
[2017-12-16] MEDS: ASPIRIN EC 81 MG TABLET PO SCH (09:45)
[2017-12-16] MEDS: ESCITALOPRAM 10 MG TABLET PO SCH (09:45)
[2017-12-16] MEDS: DESITIN 4OZ/NYSTATIN 15 GRAM MIXTURE PASTE TOP SCH (09:46)
[2017-12-16] MEDS: ENOXAPARIN 30 MG/0.3 ML SYRINGE SUBCUT SCH (09:46)
== END 2017-12-16 10:35 | disposition home or self-care (01) | DRG 250 ==
LOC: N.ED 13:44 → N.EDINP 13:44 → N.TELES 20:06 → N.ICU 12-06 11:05 → N.TELEN 12-13 15:09
PROVIDERS: ADMIT Internal Medicine Interventional Cardiology; ATTEND Internal Medicine Interventional Cardiology